=== PATIENT | male | born 1950 | race African-American/Black ===

== ENCOUNTER 2021-08-09 08:08 | Inpatient (IN) | payer MEDICARE, MEDICAID ==
[2021-08-09] MEDS ORDERED: Rocuronium Bromide 10 MG/ML (10ML VIAL) ONE (08:14)
[2021-08-09] MEDS ORDERED: Propofol 1,000 MG/100 ML VIAL IV ONE ×2 (08:17→12:19)
[2021-08-09 08:38] LABS: Actual Bicarbonate (HCO3a) 18.8 mEq/L (22-28); Analyzer IN Cardio ER; Base Excess (BEa) -11.6 mEq/L (-2.0 to +3.0); Calcium, Ionized (arterial) 1.19 mmol/L (1.12-1.30); Hemoglobin (Hb) 13.6 g/dL (14.0-18.0); O2 Tension (PaO2), arterial 212.3 mmHg (80.0-100.0); Potassium - ABG Lab 3.85 mmol/L (3.70-5.30)
[2021-08-09 08:42] LABS: pH, Arterial 7.09 (7.35-7.45)
[2021-08-09 08:43] LABS: ALV-art Gradient 422.325 mmHg (0-20); CO2 Tension 62.7 mmHg (35.0-45.0); Puncture Site RBA
[2021-08-09 08:52] LABS: ALT (SGPT) 52 U/L (8-55); AST (SGOT) 81 U/L (5-34); Alkaline Phosphatase 91 U/L (40-110); Anion Gap 16 mmol/L (10-20); Bilirubin, Total 0.6 mg/dL (0.2-1.2); Calc. Creatinine Clearance 0 mL/min (70-130); Calcium 8.6 mg/dL (7.8-10.44); Chloride 113 mmol/L (98-107); Potassium 4.6 mmol/L (3.5-5.1); Sodium 139 mmol/L (136-145)
[2021-08-09 08:58] LABS: Bacteria/HPF 4+ HPF (None Seen); Bilirubin Negative (Negative); Blood, Urine Trace (Negative); Clarity Clear (Clear); Glucose, Urine (Dipstick) Normal (Negative); Ketone, Urine Negative (Negative); Leukocyte 250 Leu/uL (Negative); Nitrite Negative (Negative); Protein, Urine (Dipstick) 100 mg/dL (Neg-Trace); RBC/HPF 0-3 HPF (0-3); Specific Gravity, Urine 1.015 (1.002-1.036); Urobilinogen Normal mg/dL (Less than 2)
[2021-08-09 09:03] LABS: Hemoglobin 15.3 g/dL (14.0-18.0); Lymphocytes 58 % (21-51); MDiff Complete? YES; Mean Corpuscular HGB CONC 32.7 g/dL (32.0-36.0); Mean Corpuscular Volume 91.8 fL (78.0-98.0); Mean Platelet Volume 12.6 fL (7.4-10.4); Monocytes 8 % (0-10); Neutrophil 33 % (42-75); Platelet Count 81 thou/uL (130-400); Platelet Morphology Comment Appears Decreased; Polychromasia SLIGHT = 2-3 cells (100X) (0-2/hpf); RBC Distribution Width 15.7 % (11.5-14.5); Reactive Lymphocytes 1 % (0-10); Red Blood Cell (RBC) Count 5.11 mill/uL (4.70-6.10); White Blood Cell (WBC) Count 11.7 thou/uL (4.8-10.8)
[2021-08-09] MEDS ORDERED: Cefepime 2 GM VIAL ONE (09:08)
[2021-08-09] MEDS ORDERED: Magnesium 2 GM/50 ML BAG (IN WATER) ONE (09:08)
[2021-08-09] MEDS ORDERED: methylPREDNISolone Sod Succ/PF 125 MG/2 ML VIAL ONE (09:08)
[2021-08-09 09:34] LABS: SARS-CoV-2 NAA Rapid Test Not Detected (NotDetected)
[2021-08-09] MEDS ORDERED: Vancomycin 1 GM in Premix Bag 1 BAG IVPB SCH ×2 (10:15→19:00)
[2021-08-09 10:54] LABS: Actual Bicarbonate (HCO3a) 19.3 mEq/L (22-28); Analyzer IN Cardio ER; Base Excess (BEa) -7.9 mEq/L (-2.0 to +3.0); CO2 Tension 45.6 mmHg (35.0-45.0); Calcium, Ionized (arterial) 1.14 mmol/L (1.12-1.30); Carboxyhemoglobin (COHb) 2.4 gm% (0.0-3.0); Hemoglobin (Hb) 13.1 g/dL (14.0-18.0); O2 Tension (PaO2), arterial 61.3 mmHg (> 70.0); Potassium - ABG Lab 4.78 mmol/L (3.70-5.30); Puncture Site RBA; pH, Arterial 7.24 (7.35-7.45)
[2021-08-09] MEDS ORDERED: Calcium Carbonate 500 MG ChewTAB PO PRN (11:39)
[2021-08-09] MEDS ORDERED: Acetaminophen 325 MG TAB PO PRN (11:39)
[2021-08-09] MEDS ORDERED: Acetaminophen 650 MG Suppository PR PRN (11:39)
[2021-08-09] MEDS ORDERED: Senokot S 8.6-50 MG TAB PO PRN (11:39)
[2021-08-09] MEDS ORDERED: Electrolyte Replacement Protocol 1 EACH IVPB SCH (11:41)
[2021-08-09] MEDS ORDERED: Ventilator Sedation Protocol 1 EACH FS ONE (11:44)
[2021-08-09 12:03] LABS: Lactic Acid 1.9 mmol/L (0.5-2.2)
[2021-08-09 12:06] LABS: Magnesium 2.6 mg/dL (1.6-2.6); Phosphorus 4.1 mg/dL (2.3-4.7)
[2021-08-09 12:12] LABS: Troponin I 0.047 ng/mL (< 0.028)
[2021-08-09] MEDS ORDERED: Aspirin Chewable 81 MG TAB PER TUBE SCH (12:15)
[2021-08-09] MEDS ORDERED: Piperacillin/Tazobactam 3.375 GM in Sodium Chloride 0.9% 100 ML IVPB SCH (12:45)
[2021-08-09] MEDS ORDERED: Propofol BOLUS 1,000 MG/100 ML VIAL IV PRN (12:45)
[2021-08-09] MEDS ORDERED: DISCONTINUE PREVIOUS NARCOTIC PAIN MEDICATIONS AND BENZODIAZEPINES FS SCH (12:45)
[2021-08-09] MEDS ORDERED: Fentanyl BOLUS 250 ML IVPB PRN (12:45)
[2021-08-09] MEDS ORDERED: Propofol 1,000 MG/100 ML VIAL IV PRN (12:45)
[2021-08-09] MEDS ORDERED: Fentanyl CADD 100 ML IV SCH (12:45)
[2021-08-09] MEDS ORDERED: Morphine 4 MG/ML VIAL SLOW IVP PRN (12:45)
[2021-08-09 14:11] LABS: BUN (Urea Nitrogen) 18 mg/dL (8.4-25.7); Carbon Dioxide 15 mmol/L (23-31); Glucose 155 mg/dL (83-110)
[2021-08-09] MEDS: Furosemide 20 MG/2 ML VIAL SLOW IVP SCH (14:23)
[2021-08-09 14:33] LABS: Troponin I 0.087 ng/mL (< 0.028)
[2021-08-09 14:36] LABS: Anion Gap 13 mmol/L (10-20); BUN (Urea Nitrogen) 18 mg/dL (8.4-25.7); Calc. Creatinine Clearance 35 mL/min (70-130); Calcium 8.4 mg/dL (7.8-10.44); Carbon Dioxide 20 mmol/L (23-31); Chloride 112 mmol/L (98-107); Glucose 132 mg/dL (83-110); Potassium 5.2 mmol/L (3.5-5.1); Sodium 140 mmol/L (136-145)
[2021-08-09 16:03] LABS: Actual Bicarbonate (HCO3v) 21 mEq/L (22-28); Calcium, Ionized (venous) 1.17 mmol/L (1.16-1.32); Chloride (VBG) 109 mmol/L (98-106); Hemoglobin (Hb) 12.9 g/dL (12.6-17.4); Potassium (VBG) 6.19 mmol/L (3.70-5.30); Sodium 136.4 mmol/L (133-146); pH (venous) 7.31 (7.32-7.43)
[2021-08-09] MEDS: Piperacillin/Tazobactam 3.375 GM in Sodium Chloride 0.9% 100 ML IVPB SCH (17:29)
[2021-08-09] MEDS ORDERED: Vancomycin HCl 1 MG in Premix Bag 1 BAG IVPB SCH (19:00)
[2021-08-09] MEDS: fentaNYL Citrate-0.9 % NaCl/PF 100 ML IV SCH (19:32)
[2021-08-09] MEDS: Famotidine 20 MG TAB PO SCH (19:46)
[2021-08-09] MEDS ORDERED: cefTRIAXone\\ROCEPHIN 2 GM in Sodium Chloride 0.9% 100 ML IVPB SCH (21:00)
[2021-08-09] MEDS: Famotidine/PF 20 mg/2ml Vial SLOW IVP SCH (21:15)
[2021-08-09] MEDS: Lorazepam 2 MG/ML VIAL SLOW IVP PRN (21:16)
[2021-08-09] MEDS: Heparin 5,000 UNITS/ML VIAL SC SCH (21:26)
[2021-08-10] MEDS: Piperacillin/Tazobactam 3.375 GM in Sodium Chloride 0.9% 100 ML IVPB SCH ×4 (02:19→23:59)
[2021-08-10 03:53] LABS: #Lymphocytes 1.2 thou/uL (1.20-3.40); #Monocytes 0.9 thou/uL (0.11-0.59); %Basophils 0.4 % (0.0-1.0); %Lymphocytes 13.5 % (21.0-51.0); %Monocytes 9.6 % (0.0-10.0); %Neutrophils 76.4 % (42.0-75.0); Hemoglobin 13.8 g/dL (14.0-18.0); Mean Corpuscular HGB CONC 31.6 g/dL (32.0-36.0); Mean Corpuscular Hemoglobin 29.6 pg (27.0-31.0); Mean Corpuscular Volume 93.9 fL (78.0-98.0); Mean Platelet Volume 11.9 fL (7.4-10.4); Platelet Count 97 thou/uL (130-400); RBC Distribution Width 15.8 % (11.5-14.5); Red Blood Cell (RBC) Count 4.66 mill/uL (4.70-6.10); White Blood Cell (WBC) Count 9.2 thou/uL (4.8-10.8)
[2021-08-10 03:55] LABS: INR-International Normal Ratio 1.1; PTT 36.9 sec (22.9-36.1); Prothrombin Time 14.3 sec (12.0-14.7)
[2021-08-10 04:12] LABS: CRP (Inflammatory) Less than 0.50 mg/dL (= or < 0.5); Phosphorus 3.5 mg/dL (2.3-4.7)
[2021-08-10 04:16] LABS: ALT (SGPT) 46 U/L (8-55); AST (SGOT) 38 U/L (5-34); Albumin 3.5 g/dL (3.4-4.8); Alkaline Phosphatase 82 U/L (40-110); Anion Gap 16 mmol/L (10-20); BUN (Urea Nitrogen) 20 mg/dL (8.4-25.7); Bilirubin, Total 0.7 mg/dL (0.2-1.2); Calc. Creatinine Clearance 33 mL/min (70-130); Calcium 8.4 mg/dL (7.8-10.44); Carbon Dioxide 16 mmol/L (23-31); Chloride 112 mmol/L (98-107); Globulin 2.7 g/dL (2.4-3.5); Glucose 114 mg/dL (83-110); Magnesium 2.4 mg/dL (1.6-2.6); Potassium 4.7 mmol/L (3.5-5.1); Protein, Total 6.2 g/dL (5.8-8.1); Sodium 139 mmol/L (136-145)
[2021-08-10] MEDS: Furosemide 20 MG/2 ML VIAL SLOW IVP SCH ×2 (05:10→14:06)
[2021-08-10 07:14] LABS: Actual Bicarbonate (HCO3a) 15.6 mEq/L (22-28); Base Excess (BEa) -7.8 mEq/L (-2.0 to +3.0); CO2 Tension 26.6 mmHg (35.0-45.0); Calcium, Ionized (arterial) 1.18 mmol/L (1.12-1.30); Carboxyhemoglobin (COHb) 0.2 gm% (0.0-3.0); Hemoglobin (Hb) 13.1 g/dL (14.0-18.0); O2 Tension (PaO2), arterial 118.8 mmHg (> 70.0); Potassium - ABG Lab 4.35 mmol/L (3.70-5.30); pH, Arterial 7.39 (7.35-7.45)
[2021-08-10 07:27] LABS: Puncture Site RBA
[2021-08-10] MEDS: Aspirin Chewable 81 MG TAB PO SCH (09:16)
[2021-08-10] MEDS: methylPREDNISolone Sod Succ 40 MG VIAL IVP SCH (09:17)
[2021-08-10] MEDS: fentaNYL Citrate-0.9 % NaCl/PF 100 ML IV SCH (10:04)
[2021-08-10] MEDS ORDERED: Dexmedetomidine In 0.9 % NaCl 100 ML IVPB SCH (11:15)
[2021-08-10] MEDS: Heparin 5,000 UNITS/ML VIAL SC SCH ×2 (12:05→20:18)
[2021-08-10] MEDS: Lorazepam 2 MG/ML VIAL SLOW IVP PRN (12:06)
[2021-08-10] MEDS ORDERED: Propofol 1,000 MG/100 ML VIAL IV PRN (15:00)
[2021-08-10] MEDS: Famotidine 20 MG TAB PO SCH (20:05)
[2021-08-10] MEDS: Famotidine/PF 20 mg/2ml Vial SLOW IVP SCH (20:19)
[2021-08-11 04:08] LABS: ALT (SGPT) 30 U/L (8-55); AST (SGOT) 20 U/L (5-34); Albumin 3.4 g/dL (3.4-4.8); Alkaline Phosphatase 65 U/L (40-110); Anion Gap 13 mmol/L (10-20); BUN (Urea Nitrogen) 32 mg/dL (8.4-25.7); Bilirubin, Total 0.6 mg/dL (0.2-1.2); Calc. Creatinine Clearance 26 mL/min (70-130); Calcium 8.5 mg/dL (7.8-10.44); Carbon Dioxide 19 mmol/L (23-31); Chloride 113 mmol/L (98-107); Globulin 2.7 g/dL (2.4-3.5); Glucose 109 mg/dL (83-110); Magnesium 2.4 mg/dL (1.6-2.6); Potassium 4.2 mmol/L (3.5-5.1); Protein, Total 6.1 g/dL (5.8-8.1); Sodium 141 mmol/L (136-145)
[2021-08-11 05:08] LABS: #Monocytes 1.3 thou/uL (0.11-0.59); #Neutrophils 9.3 thou/uL (1.40-6.50); %Basophils 0.3 % (0.0-1.0); %Eosinophils 0.1 % (0.0-10.0); %Lymphocytes 15.6 % (21.0-51.0); %Monocytes 10.4 % (0.0-10.0); %Neutrophils 73.7 % (42.0-75.0); Hemoglobin 13.2 g/dL (14.0-18.0); Large Platelets SLIGHT; MDiff Complete? YES; Mean Corpuscular HGB CONC 33.3 g/dL (32.0-36.0); Mean Corpuscular Hemoglobin 30.3 pg (27.0-31.0); Mean Platelet Volume 8.5 fL (7.4-10.4); Platelet Count 87 thou/uL (130-400); Platelet Morphology Comment Appears Decreased; RBC Distribution Width 15.7 % (11.5-14.5); Red Blood Cell (RBC) Count 4.36 mill/uL (4.70-6.10); White Blood Cell (WBC) Count 12.6 thou/uL (4.8-10.8)
[2021-08-11 07:42] LABS: Actual Bicarbonate (HCO3a) 18.2 mEq/L (22-28); Base Excess (BEa) -5.3 mEq/L (-2.0 to +3.0); CO2 Tension 29.6 mmHg (35.0-45.0); Carboxyhemoglobin (COHb) 0.6 gm% (0.0-3.0); O2 Tension (PaO2), arterial 118.8 mmHg (> 70.0); Potassium - ABG Lab 3.89 mmol/L (3.70-5.30); pH, Arterial 7.41 (7.35-7.45)
[2021-08-11 07:44] LABS: Puncture Site RRA
[2021-08-11] MEDS: Piperacillin/Tazobactam 3.375 GM in Sodium Chloride 0.9% 100 ML IVPB SCH ×2 (08:28→17:58)
[2021-08-11] MEDS: Aspirin Chewable 81 MG TAB PO SCH (08:29)
[2021-08-11] MEDS: Heparin 5,000 UNITS/ML VIAL SC SCH ×2 (08:29→20:10)
[2021-08-11] MEDS: methylPREDNISolone Sod Succ 40 MG VIAL IVP SCH (08:29)
[2021-08-11] MEDS ORDERED: Sodium Chloride 0.9% 1,000 ML IV SCH (10:00)
[2021-08-11] MEDS: Sodium Chloride 3% (15 ML) NEB NEB SCH ×3 (10:40→18:03)
[2021-08-11 18:47] LABS: Vancomycin, Random 9.7 ug/mL (See Comment)
[2021-08-11] MEDS ORDERED: Vancomycin HCl 750 MG in Sodium Chloride 0.9% 250 ML 250 ML IVPB SCH (19:00)
[2021-08-11] MEDS: Famotidine/PF 20 mg/2ml Vial SLOW IVP SCH (20:10)
[2021-08-12] MEDS: Piperacillin/Tazobactam 3.375 GM in Sodium Chloride 0.9% 100 ML IVPB SCH
[2021-08-12 03:44] LABS: #Basophils 0.1 thou/uL (0.0-0.2); #Lymphocytes 1.5 thou/uL (1.20-3.40); #Monocytes 1.7 thou/uL (0.11-0.59); #Neutrophils 11.9 thou/uL (1.40-6.50); %Basophils 0.4 % (0.0-1.0); %Eosinophils 0.1 % (0.0-10.0); %Lymphocytes 10.1 % (21.0-51.0); %Monocytes 11.3 % (0.0-10.0); %Neutrophils 78.1 % (42.0-75.0); Hemoglobin 12.9 g/dL (14.0-18.0); Mean Corpuscular HGB CONC 33.1 g/dL (32.0-36.0); Mean Corpuscular Hemoglobin 30.5 pg (27.0-31.0); Mean Corpuscular Volume 92.1 fL (78.0-98.0); Mean Platelet Volume 11.8 fL (7.4-10.4); Platelet Count 80 thou/uL (130-400); RBC Distribution Width 15.8 % (11.5-14.5); Red Blood Cell (RBC) Count 4.23 mill/uL (4.70-6.10); White Blood Cell (WBC) Count 15.2 thou/uL (4.8-10.8)
[2021-08-12 04:11] LABS: ALT (SGPT) 23 U/L (8-55); AST (SGOT) 18 U/L (5-34); Albumin 3.7 g/dL (3.4-4.8); Alkaline Phosphatase 59 U/L (40-110); Anion Gap 14 mmol/L (10-20); BUN (Urea Nitrogen) 24 mg/dL (8.4-25.7); Bilirubin, Total 0.9 mg/dL (0.2-1.2); Calc. Creatinine Clearance 31 mL/min (70-130); Calcium 8.7 mg/dL (7.8-10.44); Carbon Dioxide 18 mmol/L (23-31); Chloride 114 mmol/L (98-107); Glucose 145 mg/dL (83-110); Magnesium 2.2 mg/dL (1.6-2.6); Potassium 3.5 mmol/L (3.5-5.1); Protein, Total 6.7 g/dL (5.8-8.1); Sodium 142 mmol/L (136-145)
[2021-08-12] MEDS ORDERED: Potassium Chloride 40 MEQ in Sodium Chloride 0.9% 250 ML 250 ML IVPB SCH (06:45)
[2021-08-12] MEDS: Sodium Chloride 3% (15 ML) NEB NEB SCH ×3 (07:26→14:32)
[2021-08-12 08:14] VITALS: BMI 18.4
[2021-08-12] MEDS ORDERED: predniSONE 20 MG TAB PO SCH (08:45)
[2021-08-12] MEDS ORDERED: Amlodipine 5 MG TAB PO SCH (09:00)
[2021-08-12] MEDS ORDERED: Amoxicillin/Potassium Clav 875 MG TAB PO SCH (09:00)
[2021-08-12] MEDS: Aspirin Chewable 81 MG TAB PO SCH (09:20)
[2021-08-12] MEDS: Heparin 5,000 UNITS/ML VIAL SC SCH (09:20)
[2021-08-12 10:44] VITALS: TEMP 98.1
[2021-08-12] MEDS ORDERED: Carvedilol 6.25 MG TAB PO SCH ×2 (11:45→17:00)
[2021-08-12 12:45] VITALS: BP 170/70
[2021-08-13] MEDS ORDERED: predniSONE 20 MG TAB PO SCH (08:00)
== END 2021-08-12 16:04 | disposition home or self-care (01) | DRG 208 ==
LOC: ERS 08:08 → EDBD 08:08 → CCU 10:10 → T4-A 08-12 10:13
PROVIDERS: ADMIT Internal Medicine; ATTEND Internal Medicine
PROC: 5A1945Z Respiratory Ventilation, 24-96 Consecutive Hours (ICD-10-PCS; principal; 2021-08-09)
PROC: 0BH17EZ Insertion of Endotracheal Airway into Trachea, Via Natural or Artificial Opening (ICD-10-PCS; 2021-08-09)
PROC: 0D9670Z Drainage of Stomach with Drainage Device, Via Natural or Artificial Opening (ICD-10-PCS; 2021-08-09)
DX: J18.9 Pneumonia, unspecified organism (principal); J96.01 Acute respiratory failure with hypoxia; I50.23 Acute on chronic systolic (congestive) heart failure; J96.02 Acute respiratory failure with hypercapnia; N39.0 Urinary tract infection, site not specified; E87.2 Acidosis; I13.0 Hypertensive heart and chronic kidney disease with heart failure and stage 1 through stage 4 chronic kidney disease, or unspecified chronic kidney disease; J44.1 Chronic obstructive pulmonary disease with (acute) exacerbation; J44.0 Chronic obstructive pulmonary disease with (acute) lower respiratory infection; I42.9 Cardiomyopathy, unspecified; N17.9 Acute kidney failure, unspecified; Z20.822 Contact with and (suspected) exposure to COVID-19; I08.3 Combined rheumatic disorders of mitral, aortic and tricuspid valves; I49.3 Ventricular premature depolarization; I45.10 Unspecified right bundle-branch block; F41.9 Anxiety disorder, unspecified; N40.0 Benign prostatic hyperplasia without lower urinary tract symptoms; M54.9 Dorsalgia, unspecified; M54.2 Cervicalgia; G89.29 Other chronic pain; N18.30 Chronic kidney disease, stage 3 unspecified; R91.1 Solitary pulmonary nodule; D69.6 Thrombocytopenia, unspecified; B96.5 Pseudomonas (aeruginosa) (mallei) (pseudomallei) as the cause of diseases classified elsewhere; F17.290 Nicotine dependence, other tobacco product, uncomplicated; Z79.01 Long term (current) use of anticoagulants; Z79.899 Other long term (current) drug therapy; Z78.1 Physical restraint status; Z98.890 Other specified postprocedural states; Z79.82 Long term (current) use of aspirin; Z87.01 Personal history of pneumonia (recurrent); Z87.440 Personal history of urinary (tract) infections
CPT/HCPCS: 31500; 36415; 36416; 36600; 51702; 71045; 76770; 80053; 80202; 81003; 81015; 82805; 83605; 83735; 83880; 84100; 84484; 85025; 85610; 85730; 86140; 87040; 87070; 87077; 87086; 87186; 87205; 93005; 93306; 94002; 94003; 94640; 94760; 96365; 96366; 96368; 96375; 97139; 99292; J0692; J1644; J1940; J2060; J2543; J2704; J2920; J2930; J3370; J3475; J3480; J3490; J7050; J7512; J7620; S0028; U0002

== ENCOUNTER 2022-01-06 20:17 | Inpatient (IN) | payer OTHER ==
[2022-01-06] MEDS ORDERED: Ondansetron ODT 4 MG TAB ONE (21:03)
[2022-01-06 22:23] LABS: Bacteria/HPF 3+ HPF (None Seen); Bilirubin Negative (Negative); Blood, Urine Negative (Negative); Clarity Turbid (Clear); Glucose, Urine (Dipstick) Normal (Negative); Ketone, Urine Negative (Negative); Leukocyte 500 Leu/uL (Negative); Nitrite Negative (Negative); Protein, Urine (Dipstick) 10 mg/dL (Neg-Trace); RBC/HPF 0-3 HPF (0-3); Specific Gravity, Urine 1.013 (1.002-1.036); Squamous Epithelial 0-3 HPF (0-3); Urobilinogen Normal mg/dL (Less than 2); pH, Urine 7.5 (5.0-9.0)
[2022-01-06 22:24] LABS: Triple Phosphate Crystal 1+ HPF (None Seen)
[2022-01-06 23:02] LABS: #Eosinphils 0.1 thou/uL (0.0-0.7); #Monocytes 0.8 thou/uL (0.11-0.59); #Neutrophils 6.7 thou/uL (1.40-6.50); %Basophils 0.4 % (0.0-1.0); %Eosinophils 0.9 % (0.0-10.0); %Lymphocytes 20.7 % (21.0-51.0); %Monocytes 8.4 % (0.0-10.0); %Neutrophils 69.7 % (42.0-75.0); Hemoglobin 11.3 g/dL (14.0-18.0); Mean Corpuscular HGB CONC 31.9 g/dL (32.0-36.0); Mean Corpuscular Hemoglobin 27.9 pg (27.0-31.0); Mean Corpuscular Volume 87.6 fL (78.0-98.0); Mean Platelet Volume 9.6 fL (7.4-10.4); Platelet Count 224 thou/uL (130-400); RBC Distribution Width 17.9 % (11.5-14.5); Red Blood Cell (RBC) Count 4.06 mill/uL (4.70-6.10); White Blood Cell (WBC) Count 9.7 thou/uL (4.8-10.8)
[2022-01-06 23:19] LABS: ALT (SGPT) 48 U/L (8-55); AST (SGOT) 55 U/L (5-34); Albumin 3.6 g/dL (3.4-4.8); Alkaline Phosphatase 92 U/L (40-110); Anion Gap 18 mmol/L (10-20); BUN (Urea Nitrogen) 48 mg/dL (8.4-25.7); Calc. Creatinine Clearance 0 mL/min (70-130); Calcium 8.9 mg/dL (7.8-10.44); Carbon Dioxide 17 mmol/L (23-31); Chloride 108 mmol/L (98-107); Estimated GFR 30; Globulin 2.5 g/dL (2.4-3.5); Glucose 121 mg/dL (83-110); Potassium 5.1 mmol/L (3.5-5.1); Protein, Total 6.1 g/dL (5.8-8.1); Sodium 138 mmol/L (136-145)
[2022-01-06 23:41] LABS: CKMB 4.3 ng/mL (0-6.6)
[2022-01-06] MEDS ORDERED: cefTRIAXone\\ROCEPHIN 1 GM VIAL ONE (23:49)
[2022-01-07] MEDS ORDERED: Sodium Chloride 0.9% 1,000 ML IV SCH (00:45)
[2022-01-07] MEDS ORDERED: Ondansetron ODT 4 MG TAB SL PRN (00:45)
[2022-01-07] MEDS ORDERED: Acetaminophen 325 MG TAB PO PRN (00:45)
[2022-01-07] MEDS ORDERED: Ondansetron PF 4 MG/2 ML Vial IVP PRN (00:45)
[2022-01-07 01:34] VITALS: BMI 17.6
[2022-01-07 04:39] LABS: #Basophils 0.1 thou/uL (0.0-0.2); #Eosinphils 0.1 thou/uL (0.0-0.7); #Lymphocytes 2.6 thou/uL (1.20-3.40); #Monocytes 1.2 thou/uL (0.11-0.59); %Basophils 0.7 % (0.0-1.0); %Eosinophils 0.8 % (0.0-10.0); %Lymphocytes 26.4 % (21.0-51.0); %Monocytes 11.7 % (0.0-10.0); %Neutrophils 60.3 % (42.0-75.0); Hemoglobin 11.2 g/dL (14.0-18.0); Mean Corpuscular HGB CONC 31.1 g/dL (32.0-36.0); Mean Corpuscular Hemoglobin 27.9 pg (27.0-31.0); Mean Corpuscular Volume 89.5 fL (78.0-98.0); Mean Platelet Volume 11.6 fL (7.4-10.4); Platelet Count 166 thou/uL (130-400); RBC Distribution Width 18.2 % (11.5-14.5); Red Blood Cell (RBC) Count 4.03 mill/uL (4.70-6.10); White Blood Cell (WBC) Count 9.9 thou/uL (4.8-10.8)
[2022-01-07 05:03] LABS: Chloride 111 mmol/L (98-107); Potassium 5.3 mmol/L (3.5-5.1); Sodium 135 mmol/L (136-145)
[2022-01-07 05:04] LABS: Calcium 8.4 mg/dL (7.8-10.44); Glucose 110 mg/dL (83-110)
[2022-01-07 05:08] LABS: BUN (Urea Nitrogen) 51 mg/dL (8.4-25.7); Calc. Creatinine Clearance 21 mL/min (70-130); Estimated GFR 31
[2022-01-07 05:10] LABS: Anion Gap 20 mmol/L (10-20); Carbon Dioxide 9 mmol/L (23-31)
[2022-01-07 05:32] LABS: CKMB 3.5 ng/mL (0-6.6)
[2022-01-07] MEDS ORDERED: Polyethylene Glycol 3350 17 GM Packet PO PRN (05:53)
[2022-01-07] MEDS ORDERED: Sodium Bicarb 50 MEQ/50 ML Abboject 8.4% SYRINGE IVP SCH (06:00)
[2022-01-07] MEDS ORDERED: Sodium Bicarbonate 150 MEQ in Dextrose 5% in Water 1,000 ML IV SCH (06:15)
[2022-01-07] MEDS: Sodium Bicarbonate 150 MEQ in Dextrose 5% in Water 1,000 ML IV SCH ×2 (06:41→20:49)
[2022-01-07] MEDS: Heparin 5,000 UNITS/ML VIAL SC SCH ×2 (08:52→20:48)
[2022-01-07] MEDS: Docusate 100 MG CAP PO SCH ×2 (08:52→20:47)
[2022-01-07] MEDS: Amlodipine 5 MG TAB PO SCH (08:52)
[2022-01-07] MEDS: Carvedilol 6.25 MG TAB PO SCH ×2 (08:52→16:32)
[2022-01-07] MEDS: Pregabalin 50 MG CAP PO SCH ×2 (08:53→20:47)
[2022-01-07 09:20] LABS: Anion Gap 17 mmol/L (10-20); BUN (Urea Nitrogen) 50 mg/dL (8.4-25.7); Calc. Creatinine Clearance 23 mL/min (70-130); Calcium 8.6 mg/dL (7.8-10.44); Carbon Dioxide 15 mmol/L (23-31); Chloride 109 mmol/L (98-107); Estimated GFR 33; Glucose 116 mg/dL (83-110); Potassium 4.4 mmol/L (3.5-5.1); Sodium 137 mmol/L (136-145)
[2022-01-07 11:09] LABS: Lactic Acid 1.9 mmol/L (0.5-2.2)
[2022-01-07] MEDS: Azithromycin 500 MG in Sodium Chloride 0.9% 250 ML 250 ML IVPB SCH (11:59)
[2022-01-07] MEDS: Simvastatin 10 MG TAB PO SCH (20:47)
[2022-01-07] MEDS: cefTRIAXone\\ROCEPHIN 1 GM in Sodium Chloride 0.9% 100 ML IVPB SCH (20:49)
[2022-01-08 04:55] LABS: #Basophils 0.1 thou/uL (0.0-0.2); #Eosinphils 0.1 thou/uL (0.0-0.7); #Lymphocytes 2.3 thou/uL (1.20-3.40); #Monocytes 1.2 thou/uL (0.11-0.59); #Neutrophils 6.1 thou/uL (1.40-6.50); %Eosinophils 0.8 % (0.0-10.0); %Lymphocytes 23.4 % (21.0-51.0); %Monocytes 12.5 % (0.0-10.0); %Neutrophils 62.3 % (42.0-75.0); Hemoglobin 10.2 g/dL (14.0-18.0); Mean Corpuscular HGB CONC 31.5 g/dL (32.0-36.0); Mean Corpuscular Volume 88.7 fL (78.0-98.0); Mean Platelet Volume 9.7 fL (7.4-10.4); Platelet Count 218 thou/uL (130-400); RBC Distribution Width 17.7 % (11.5-14.5); Red Blood Cell (RBC) Count 3.65 mill/uL (4.70-6.10); White Blood Cell (WBC) Count 9.8 thou/uL (4.8-10.8)
[2022-01-08 05:10] LABS: Anion Gap 16 mmol/L (10-20); BUN (Urea Nitrogen) 45 mg/dL (8.4-25.7); Calc. Creatinine Clearance 24 mL/min (70-130); Calcium 8.3 mg/dL (7.8-10.44); Carbon Dioxide 22 mmol/L (23-31); Chloride 103 mmol/L (98-107); Estimated GFR 35; Glucose 93 mg/dL (83-110); Sodium 137 mmol/L (136-145)
[2022-01-08] MEDS: Heparin 5,000 UNITS/ML VIAL SC SCH ×2 (07:54→20:24)
[2022-01-08] MEDS: Carvedilol 6.25 MG TAB PO SCH ×2 (07:55→16:39)
[2022-01-08] MEDS: Amlodipine 5 MG TAB PO SCH (07:55)
[2022-01-08] MEDS: Docusate 100 MG CAP PO SCH ×2 (07:55→20:24)
[2022-01-08] MEDS: Sodium Bicarbonate 150 MEQ in Dextrose 5% in Water 1,000 ML IV SCH ×2 (07:58→16:41)
[2022-01-08] MEDS: Azithromycin 500 MG in Sodium Chloride 0.9% 250 ML 250 ML IVPB SCH (11:37)
[2022-01-08] MEDS: Pregabalin 50 MG CAP PO SCH ×2 (11:37→20:23)
[2022-01-08] MEDS: Azithromycin 250 MG TAB PO SCH (16:39)
[2022-01-08] MEDS: Simvastatin 10 MG TAB PO SCH (20:23)
[2022-01-08] MEDS: cefTRIAXone\\ROCEPHIN 1 GM in Sodium Chloride 0.9% 100 ML IVPB SCH (20:24)
[2022-01-09 05:02] LABS: #Eosinphils 0.1 thou/uL (0.0-0.7); #Neutrophils 6.9 thou/uL (1.40-6.50); %Basophils 0.2 % (0.0-1.0); %Eosinophils 0.8 % (0.0-10.0); %Monocytes 10.3 % (0.0-10.0); %Neutrophils 68.8 % (42.0-75.0); Hemoglobin 10.1 g/dL (14.0-18.0); Mean Corpuscular HGB CONC 31.7 g/dL (32.0-36.0); Mean Corpuscular Hemoglobin 27.6 pg (27.0-31.0); Mean Platelet Volume 9.8 fL (7.4-10.4); Platelet Count 214 thou/uL (130-400); RBC Distribution Width 17.9 % (11.5-14.5); Red Blood Cell (RBC) Count 3.64 mill/uL (4.70-6.10); White Blood Cell (WBC) Count 10.1 thou/uL (4.8-10.8)
[2022-01-09 05:25] LABS: Anion Gap 15 mmol/L (10-20); BUN (Urea Nitrogen) 42 mg/dL (8.4-25.7); Calc. Creatinine Clearance 25 mL/min (70-130); Calcium 8.4 mg/dL (7.8-10.44); Carbon Dioxide 25 mmol/L (23-31); Chloride 101 mmol/L (98-107); Estimated GFR 38; Glucose 114 mg/dL (83-110); Sodium 137 mmol/L (136-145)
[2022-01-09] MEDS: Sodium Bicarbonate 150 MEQ in Dextrose 5% in Water 1,000 ML IV SCH (06:34)
[2022-01-09] MEDS: Carvedilol 6.25 MG TAB PO SCH ×2 (09:06→18:05)
[2022-01-09] MEDS: Pregabalin 50 MG CAP PO SCH ×2 (09:06→20:17)
[2022-01-09] MEDS: Amlodipine 5 MG TAB PO SCH (09:07)
[2022-01-09] MEDS: Docusate 100 MG CAP PO SCH ×2 (09:08→20:19)
[2022-01-09] MEDS: Azithromycin 250 MG TAB PO SCH (09:08)
[2022-01-09] MEDS: Heparin 5,000 UNITS/ML VIAL SC SCH ×2 (09:10→20:20)
[2022-01-09] MEDS ORDERED: Lisinopril 2.5 MG TAB PO SCH (14:00)
[2022-01-09] MEDS: Furosemide 40 MG/4 ML VIAL SLOW IVP SCH (14:24)
[2022-01-09] MEDS: Simvastatin 10 MG TAB PO SCH (20:17)
[2022-01-09] MEDS: cefTRIAXone\\ROCEPHIN 1 GM in Sodium Chloride 0.9% 100 ML IVPB SCH (22:52)
[2022-01-10 04:52] LABS: #Basophils 0.1 thou/uL (0.0-0.2); #Eosinphils 0.1 thou/uL (0.0-0.7); #Lymphocytes 1.6 thou/uL (1.20-3.40); #Neutrophils 6.5 thou/uL (1.40-6.50); %Basophils 0.6 % (0.0-1.0); %Eosinophils 1.6 % (0.0-10.0); %Lymphocytes 16.9 % (21.0-51.0); %Monocytes 11.1 % (0.0-10.0); %Neutrophils 69.9 % (42.0-75.0); Hemoglobin 10.1 g/dL (14.0-18.0); Mean Corpuscular HGB CONC 31.6 g/dL (32.0-36.0); Mean Corpuscular Hemoglobin 27.3 pg (27.0-31.0); Mean Corpuscular Volume 86.2 fL (78.0-98.0); Mean Platelet Volume 9.9 fL (7.4-10.4); Platelet Count 203 thou/uL (130-400); RBC Distribution Width 17.9 % (11.5-14.5); Red Blood Cell (RBC) Count 3.69 mill/uL (4.70-6.10); White Blood Cell (WBC) Count 9.3 thou/uL (4.8-10.8)
[2022-01-10 05:04] LABS: Anion Gap 16 mmol/L (10-20); BUN (Urea Nitrogen) 44 mg/dL (8.4-25.7); Calc. Creatinine Clearance 24 mL/min (70-130); Calcium 8.3 mg/dL (7.8-10.44); Carbon Dioxide 27 mmol/L (23-31); Chloride 97 mmol/L (98-107); Estimated GFR 35; Glucose 148 mg/dL (83-110); Potassium 3.9 mmol/L (3.5-5.1); Sodium 136 mmol/L (136-145)
[2022-01-10] MEDS: Furosemide 40 MG/4 ML VIAL SLOW IVP SCH ×2 (05:29→14:35)
[2022-01-10] MEDS: Sodium Bicarbonate 150 MEQ in Dextrose 5% in Water 1,000 ML IV SCH (05:29)
[2022-01-10] MEDS: Pregabalin 50 MG CAP PO SCH ×2 (07:54→19:52)
[2022-01-10] MEDS: Azithromycin 250 MG TAB PO SCH (07:55)
[2022-01-10] MEDS: Lisinopril 2.5 MG TAB PO SCH (07:55)
[2022-01-10] MEDS: Docusate 100 MG CAP PO SCH ×2 (07:55→19:50)
[2022-01-10] MEDS: Carvedilol 6.25 MG TAB PO SCH ×2 (07:55→17:31)
[2022-01-10] MEDS: Heparin 5,000 UNITS/ML VIAL SC SCH ×2 (07:55→19:52)
[2022-01-10] MEDS: Aspirin 81 mg Enteric Coated Tablet PO SCH (07:55)
[2022-01-10] MEDS ORDERED: Mag-Al 1200 mg/1200 mg/30 ML UDCUP PO SCH (17:00)
[2022-01-10] MEDS: Simvastatin 10 MG TAB PO SCH (19:51)
[2022-01-10] MEDS: cefTRIAXone\\ROCEPHIN 1 GM in Sodium Chloride 0.9% 100 ML IVPB SCH (23:42)
[2022-01-11] MEDS: Sodium Bicarbonate 150 MEQ in Dextrose 5% in Water 1,000 ML IV SCH (04:10)
[2022-01-11] MEDS: Furosemide 40 MG/4 ML VIAL SLOW IVP SCH ×2 (06:05→13:53)
[2022-01-11] MEDS: Lisinopril 2.5 MG TAB PO SCH (07:55)
[2022-01-11] MEDS: Carvedilol 6.25 MG TAB PO SCH ×2 (07:55→16:32)
[2022-01-11] MEDS: Docusate 100 MG CAP PO SCH ×2 (07:55→20:25)
[2022-01-11] MEDS: Heparin 5,000 UNITS/ML VIAL SC SCH ×2 (07:55→20:25)
[2022-01-11] MEDS: Pregabalin 50 MG CAP PO SCH ×2 (07:56→20:25)
[2022-01-11] MEDS: Azithromycin 250 MG TAB PO SCH (07:56)
[2022-01-11] MEDS: Aspirin 81 mg Enteric Coated Tablet PO SCH (07:56)
[2022-01-11 12:30] LABS: Anion Gap 16 mmol/L (10-20); BUN (Urea Nitrogen) 38 mg/dL (8.4-25.7); Calc. Creatinine Clearance 25 mL/min (70-130); Calcium 8.5 mg/dL (7.8-10.44); Carbon Dioxide 31 mmol/L (23-31); Chloride 96 mmol/L (98-107); Estimated GFR 38; Glucose 97 mg/dL (83-110); Potassium 4.1 mmol/L (3.5-5.1); Sodium 139 mmol/L (136-145)
[2022-01-11] MEDS: Simvastatin 10 MG TAB PO SCH (20:25)
[2022-01-11] MEDS: cefTRIAXone\\ROCEPHIN 1 GM in Sodium Chloride 0.9% 100 ML IVPB SCH (23:03)
[2022-01-12] MEDS: Sodium Bicarbonate 150 MEQ in Dextrose 5% in Water 1,000 ML IV SCH (02:24)
[2022-01-12 05:11] LABS: Anion Gap 16 mmol/L (10-20); BUN (Urea Nitrogen) 30 mg/dL (8.4-25.7); Calc. Creatinine Clearance 27 mL/min (70-130); Calcium 8.2 mg/dL (7.8-10.44); Carbon Dioxide 31 mmol/L (23-31); Chloride 97 mmol/L (98-107); Estimated GFR 41; Glucose 116 mg/dL (83-110); Potassium 3.7 mmol/L (3.5-5.1); Sodium 140 mmol/L (136-145)
[2022-01-12] MEDS: Furosemide 40 MG/4 ML VIAL SLOW IVP SCH ×2 (05:55→15:02)
[2022-01-12] MEDS: Aspirin 81 mg Enteric Coated Tablet PO SCH (07:57)
[2022-01-12] MEDS: Heparin 5,000 UNITS/ML VIAL SC SCH ×2 (07:57→20:25)
[2022-01-12] MEDS: Lisinopril 2.5 MG TAB PO SCH (07:58)
[2022-01-12] MEDS: Docusate 100 MG CAP PO SCH ×2 (07:58→20:25)
[2022-01-12] MEDS: Carvedilol 6.25 MG TAB PO SCH ×2 (07:58→16:38)
[2022-01-12] MEDS: Pregabalin 50 MG CAP PO SCH ×2 (07:58→20:25)
[2022-01-12] MEDS: Simvastatin 10 MG TAB PO SCH (20:25)
[2022-01-13] MEDS: Sodium Bicarbonate 150 MEQ in Dextrose 5% in Water 1,000 ML IV SCH (02:48)
[2022-01-13 04:56] LABS: Anion Gap 14 mmol/L (10-20); BUN (Urea Nitrogen) 35 mg/dL (8.4-25.7); Calc. Creatinine Clearance 26 mL/min (70-130); Calcium 8.5 mg/dL (7.8-10.44); Carbon Dioxide 33 mmol/L (23-31); Chloride 95 mmol/L (98-107); Estimated GFR 39; Glucose 103 mg/dL (83-110); Sodium 138 mmol/L (136-145)
[2022-01-13] MEDS ORDERED: Acetaminophen 325 MG TAB PO PRN (05:08)
[2022-01-13] MEDS: Furosemide 40 MG/4 ML VIAL SLOW IVP SCH (05:11)
[2022-01-13] MEDS: Aspirin 81 mg Enteric Coated Tablet PO SCH (09:15)
[2022-01-13] MEDS: Carvedilol 6.25 MG TAB PO SCH (09:15)
[2022-01-13] MEDS: Lisinopril 2.5 MG TAB PO SCH (09:15)
[2022-01-13] MEDS: Docusate 100 MG CAP PO SCH (09:15)
[2022-01-13] MEDS: Pregabalin 50 MG CAP PO SCH (09:16)
[2022-01-13] MEDS: Heparin 5,000 UNITS/ML VIAL SC SCH (09:16)
[2022-01-13 12:17] VITALS: BP 143/74; TEMP 97.7
== END 2022-01-13 13:10 | disposition home health service (06) | DRG 682 ==
LOC: ERS 20:17 → 2SW 23:52 → OBSVTOIN 01-07 06:17
PROVIDERS: ADMIT Internal Medicine; ATTEND Internal Medicine
DX: N17.9 Acute kidney failure, unspecified (principal); Z20.822 Contact with and (suspected) exposure to COVID-19; I50.23 Acute on chronic systolic (congestive) heart failure; J18.9 Pneumonia, unspecified organism; E44.1 Mild protein-calorie malnutrition; Z68.1 Body mass index [BMI] 19.9 or less, adult; I13.0 Hypertensive heart and chronic kidney disease with heart failure and stage 1 through stage 4 chronic kidney disease, or unspecified chronic kidney disease; E87.2 Acidosis; N39.0 Urinary tract infection, site not specified; N13.8 Other obstructive and reflux uropathy; I42.9 Cardiomyopathy, unspecified; N18.4 Chronic kidney disease, stage 4 (severe); J44.9 Chronic obstructive pulmonary disease, unspecified; G89.29 Other chronic pain; M54.9 Dorsalgia, unspecified; M54.2 Cervicalgia; R33.9 Retention of urine, unspecified; G62.9 Polyneuropathy, unspecified; F17.210 Nicotine dependence, cigarettes, uncomplicated; E87.5 Hyperkalemia; R77.8 Other specified abnormalities of plasma proteins; D63.1 Anemia in chronic kidney disease; R13.10 Dysphagia, unspecified; R13.12 Dysphagia, oropharyngeal phase; I08.0 Rheumatic disorders of both mitral and aortic valves; I08.3 Combined rheumatic disorders of mitral, aortic and tricuspid valves; Z98.890 Other specified postprocedural states; Z79.899 Other long term (current) drug therapy
CPT/HCPCS: 36415; 51701; 70551; 71045; 74018; 74176; 74230; 80048; 80053; 81003; 81015; 82553; 83605; 83880; 84145; 84484; 85025; 87077; 87086; 87186; 93005; 93306; 94640; 96365; G0378; J0456; J0696; J1644; J1940; J3490; J7050; J7070; J7620; Q0162; U0003; U0005

== ENCOUNTER 2022-01-16 09:15 | Inpatient (IN) | payer OTHER ==
[2022-01-16 10:18] LABS: #Basophils 0.1 thou/uL (0.0-0.2); #Eosinphils 0.1 thou/uL (0.0-0.7); #Lymphocytes 2.7 thou/uL (1.20-3.40); #Monocytes 1.2 thou/uL (0.11-0.59); #Neutrophils 8.3 thou/uL (1.40-6.50); %Basophils 0.4 % (0.0-1.0); %Eosinophils 0.5 % (0.0-10.0); %Lymphocytes 22.3 % (21.0-51.0); %Monocytes 9.6 % (0.0-10.0); %Neutrophils 67.2 % (42.0-75.0); Hemoglobin 11.3 g/dL (14.0-18.0); Mean Corpuscular HGB CONC 31.2 g/dL (32.0-36.0); Mean Corpuscular Hemoglobin 26.3 pg (27.0-31.0); Mean Corpuscular Volume 84.2 fL (78.0-98.0); Mean Platelet Volume 12.5 fL (7.4-10.4); Platelet Count 167 thou/uL (130-400); RBC Distribution Width 19.1 % (11.5-14.5); White Blood Cell (WBC) Count 12.3 thou/uL (4.8-10.8)
[2022-01-16] MEDS ORDERED: Furosemide 40 MG/4 ML VIAL ONE (11:16)
[2022-01-16] MEDS ORDERED: Aspirin Chewable 81 MG TAB ONE (11:16)
[2022-01-16 11:36] LABS: ALT (SGPT) 36 U/L (8-55); AST (SGOT) 48 U/L (5-34); Albumin 3.5 g/dL (3.4-4.8); Alkaline Phosphatase 85 U/L (40-110); Anion Gap 26 mmol/L (10-20); BUN (Urea Nitrogen) 56 mg/dL (8.4-25.7); Bilirubin, Total 2.3 mg/dL (0.2-1.2); Calc. Creatinine Clearance 0 mL/min (70-130); Calcium 9.3 mg/dL (7.8-10.44); Carbon Dioxide 19 mmol/L (23-31); Chloride 96 mmol/L (98-107); Estimated GFR 25; Glucose 110 mg/dL (83-110); Potassium 5.4 mmol/L (3.5-5.1); Protein, Total 6.5 g/dL (5.8-8.1); Sodium 136 mmol/L (136-145)
[2022-01-16] MEDS ORDERED: Guaifenesin DM 100-10/5 ML UDCUP PO PRN (12:07)
[2022-01-16] MEDS ORDERED: Ondansetron PF 4 MG/2 ML Vial IVP PRN (12:07)
[2022-01-16] MEDS ORDERED: Senokot S 8.6-50 MG TAB PO PRN (12:07)
[2022-01-16] MEDS: Furosemide 40 MG/4 ML VIAL SLOW IVP SCH (16:23)
[2022-01-16] MEDS: Carvedilol 3.125 MG TAB PO SCH (20:47)
[2022-01-16] MEDS: Pregabalin 50 MG CAP PO SCH (20:47)
[2022-01-17 04:45] LABS: #Basophils 0.1 thou/uL (0.0-0.2); #Eosinphils 0.1 thou/uL (0.0-0.7); #Lymphocytes 1.5 thou/uL (1.20-3.40); #Monocytes 1.2 thou/uL (0.11-0.59); #Neutrophils 8.3 thou/uL (1.40-6.50); %Basophils 0.5 % (0.0-1.0); %Eosinophils 0.6 % (0.0-10.0); %Lymphocytes 13.9 % (21.0-51.0); %Monocytes 10.4 % (0.0-10.0); %Neutrophils 74.6 % (42.0-75.0); Hemoglobin 10.6 g/dL (14.0-18.0); Mean Corpuscular Volume 83.7 fL (78.0-98.0); Mean Platelet Volume 12.3 fL (7.4-10.4); Platelet Count 172 thou/uL (130-400); White Blood Cell (WBC) Count 11.1 thou/uL (4.8-10.8)
[2022-01-17 05:02] LABS: Anion Gap 18 mmol/L (10-20); BUN (Urea Nitrogen) 64 mg/dL (8.4-25.7); Calc. Creatinine Clearance 21 mL/min (70-130); Carbon Dioxide 25 mmol/L (23-31); Chloride 95 mmol/L (98-107); Estimated GFR 24; Glucose 113 mg/dL (83-110); Potassium 4.3 mmol/L (3.5-5.1); Sodium 134 mmol/L (136-145)
[2022-01-17] MEDS: Furosemide 40 MG/4 ML VIAL SLOW IVP SCH ×2 (05:52→13:43)
[2022-01-17] MEDS: Enoxaparin Sodium 30 MG/0.3 ML SYRINGE SC SCH (08:27)
[2022-01-17] MEDS: Aspirin Chewable 81 MG TAB PO SCH (08:27)
[2022-01-17] MEDS: Carvedilol 3.125 MG TAB PO SCH ×2 (08:27→21:43)
[2022-01-17] MEDS: Pregabalin 50 MG CAP PO SCH ×2 (08:27→21:43)
[2022-01-18] MEDS: Furosemide 40 MG/4 ML VIAL SLOW IVP SCH ×2 (06:04→15:18)
[2022-01-18] MEDS: Carvedilol 3.125 MG TAB PO SCH ×2 (09:29→21:06)
[2022-01-18] MEDS: Aspirin Chewable 81 MG TAB PO SCH (09:29)
[2022-01-18] MEDS: Pregabalin 50 MG CAP PO SCH ×2 (09:29→21:06)
[2022-01-18] MEDS: Enoxaparin Sodium 30 MG/0.3 ML SYRINGE SC SCH (09:29)
[2022-01-18 11:06] LABS: Anion Gap 15 mmol/L (10-20); BUN (Urea Nitrogen) 62 mg/dL (8.4-25.7); Calc. Creatinine Clearance 23 mL/min (70-130); Calcium 8.9 mg/dL (7.8-10.44); Carbon Dioxide 29 mmol/L (23-31); Chloride 100 mmol/L (98-107); Estimated GFR 26; Glucose 109 mg/dL (83-110); Potassium 3.9 mmol/L (3.5-5.1); Sodium 140 mmol/L (136-145)
[2022-01-18] MEDS: Acetaminophen 325 MG TAB PO PRN (15:18)
[2022-01-19 05:19] LABS: Anion Gap 17 mmol/L (10-20); BUN (Urea Nitrogen) 51 mg/dL (8.4-25.7); Calc. Creatinine Clearance 26 mL/min (70-130); Calcium 8.5 mg/dL (7.8-10.44); Carbon Dioxide 25 mmol/L (23-31); Chloride 102 mmol/L (98-107); Estimated GFR 31; Glucose 124 mg/dL (83-110); Magnesium 2.3 mg/dL (1.6-2.6); Potassium 3.6 mmol/L (3.5-5.1); Sodium 140 mmol/L (136-145)
[2022-01-19] MEDS: Furosemide 40 MG/4 ML VIAL SLOW IVP SCH ×2 (06:20→14:14)
[2022-01-19] MEDS: Carvedilol 3.125 MG TAB PO SCH ×2 (09:53→20:23)
[2022-01-19] MEDS: Pregabalin 50 MG CAP PO SCH ×2 (09:53→20:24)
[2022-01-19] MEDS: Enoxaparin Sodium 30 MG/0.3 ML SYRINGE SC SCH (09:53)
[2022-01-19] MEDS: Aspirin Chewable 81 MG TAB PO SCH (09:53)
[2022-01-19] MEDS: Acetaminophen 325 MG TAB PO PRN (20:23)
[2022-01-20] MEDS ORDERED: Nitroglycerin 0.4 MG TAB (25 Tab Bottle) ONE (03:40)
[2022-01-20] MEDS: Nitroglycerin 0.4 MG TAB (25 Tab Bottle) SL PRN (03:43)
[2022-01-20] MEDS: Calcium Carbonate 500 MG ChewTAB PO PRN (03:43)
[2022-01-20 04:57] LABS: Anion Gap 12 mmol/L (10-20); BUN (Urea Nitrogen) 43 mg/dL (8.4-25.7); Calc. Creatinine Clearance 31 mL/min (70-130); Calcium 8.7 mg/dL (7.8-10.44); Carbon Dioxide 28 mmol/L (23-31); Chloride 105 mmol/L (98-107); Estimated GFR 42; Glucose 97 mg/dL (83-110); Potassium 3.7 mmol/L (3.5-5.1); Sodium 141 mmol/L (136-145)
[2022-01-20 04:59] LABS: Troponin I 0.044 ng/mL (< 0.028)
[2022-01-20] MEDS: Furosemide 40 MG/4 ML VIAL SLOW IVP SCH ×2 (05:27→15:11)
[2022-01-20] MEDS: Aspirin Chewable 81 MG TAB PO SCH (07:52)
[2022-01-20] MEDS: Pregabalin 50 MG CAP PO SCH ×2 (07:52→20:51)
[2022-01-20] MEDS: Carvedilol 3.125 MG TAB PO SCH ×2 (07:53→20:51)
[2022-01-20] MEDS: Enoxaparin Sodium 30 MG/0.3 ML SYRINGE SC SCH (07:53)
[2022-01-20 11:38] LABS: Troponin I 0.038 ng/mL (< 0.028)
[2022-01-21 05:10] LABS: Anion Gap 15 mmol/L (10-20); BUN (Urea Nitrogen) 37 mg/dL (8.4-25.7); Calc. Creatinine Clearance 30 mL/min (70-130); Calcium 8.5 mg/dL (7.8-10.44); Carbon Dioxide 23 mmol/L (23-31); Chloride 103 mmol/L (98-107); Estimated GFR 42; Glucose 100 mg/dL (83-110); Potassium 4.4 mmol/L (3.5-5.1); Sodium 137 mmol/L (136-145)
[2022-01-21] MEDS: Furosemide 40 MG/4 ML VIAL SLOW IVP SCH ×2 (06:02→15:14)
[2022-01-21] MEDS: Pregabalin 50 MG CAP PO SCH ×2 (10:03→19:34)
[2022-01-21] MEDS: Enoxaparin Sodium 30 MG/0.3 ML SYRINGE SC SCH (10:03)
[2022-01-21] MEDS: Aspirin Chewable 81 MG TAB PO SCH (10:04)
[2022-01-21] MEDS: Carvedilol 3.125 MG TAB PO SCH ×2 (10:04→19:34)
[2022-01-22] MEDS: Furosemide 40 MG/4 ML VIAL SLOW IVP SCH ×2 (05:43→15:01)
[2022-01-22] MEDS: Acetaminophen 325 MG TAB PO PRN (05:46)
[2022-01-22] MEDS: Pregabalin 50 MG CAP PO SCH ×2 (07:54→20:26)
[2022-01-22] MEDS: Enoxaparin Sodium 30 MG/0.3 ML SYRINGE SC SCH (07:55)
[2022-01-22] MEDS: Carvedilol 3.125 MG TAB PO SCH ×2 (07:55→20:26)
[2022-01-22] MEDS: Aspirin Chewable 81 MG TAB PO SCH (07:55)
[2022-01-22 08:24] LABS: Anion Gap 16 mmol/L (10-20); BUN (Urea Nitrogen) 35 mg/dL (8.4-25.7); Calc. Creatinine Clearance 29 mL/min (70-130); Calcium 8.7 mg/dL (7.8-10.44); Carbon Dioxide 23 mmol/L (23-31); Chloride 104 mmol/L (98-107); Estimated GFR 41; Glucose 149 mg/dL (83-110); Magnesium 2.2 mg/dL (1.6-2.6); Potassium 4.4 mmol/L (3.5-5.1); Sodium 139 mmol/L (136-145)
[2022-01-23] MEDS: Acetaminophen 325 MG TAB PO PRN (03:24)
[2022-01-23] MEDS: Calcium Carbonate 500 MG ChewTAB PO PRN (03:24)
[2022-01-23] MEDS: Nitroglycerin 0.4 MG TAB (25 Tab Bottle) SL PRN ×3 (03:25→13:47)
[2022-01-23] MEDS: Furosemide 40 MG/4 ML VIAL SLOW IVP SCH ×2 (06:06→13:27)
[2022-01-23 07:05] LABS: Anion Gap 18 mmol/L (10-20); BUN (Urea Nitrogen) 36 mg/dL (8.4-25.7); Calc. Creatinine Clearance 28 mL/min (70-130); Calcium 8.8 mg/dL (7.8-10.44); Carbon Dioxide 19 mmol/L (23-31); Chloride 105 mmol/L (98-107); Estimated GFR 40; Glucose 110 mg/dL (83-110); Sodium 137 mmol/L (136-145)
[2022-01-23] MEDS: Carvedilol 3.125 MG TAB PO SCH ×2 (10:18→20:41)
[2022-01-23] MEDS: Enoxaparin Sodium 30 MG/0.3 ML SYRINGE SC SCH (10:18)
[2022-01-23] MEDS: Pregabalin 50 MG CAP PO SCH ×2 (10:19→20:41)
[2022-01-23] MEDS: Aspirin Chewable 81 MG TAB PO SCH (10:21)
[2022-01-23 14:39] LABS: Troponin I 0.021 ng/mL (< 0.028)
[2022-01-23 17:04] LABS: Troponin I 0.026 ng/mL (< 0.028)
[2022-01-23 20:26] LABS: Troponin I 0.025 ng/mL (< 0.028)
[2022-01-24 05:07] LABS: Anion Gap 17 mmol/L (10-20); BUN (Urea Nitrogen) 42 mg/dL (8.4-25.7); Calc. Creatinine Clearance 28 mL/min (70-130); Calcium 8.8 mg/dL (7.8-10.44); Carbon Dioxide 20 mmol/L (23-31); Chloride 104 mmol/L (98-107); Estimated GFR 40; Glucose 97 mg/dL (83-110); Potassium 4.7 mmol/L (3.5-5.1); Sodium 136 mmol/L (136-145)
[2022-01-24] MEDS: Furosemide 40 MG/4 ML VIAL SLOW IVP SCH ×2 (06:05→14:00)
[2022-01-24] MEDS: Pregabalin 50 MG CAP PO SCH (09:32)
[2022-01-24] MEDS: Aspirin Chewable 81 MG TAB PO SCH (09:32)
[2022-01-24] MEDS: Carvedilol 3.125 MG TAB PO SCH (09:32)
[2022-01-24] MEDS: Enoxaparin Sodium 30 MG/0.3 ML SYRINGE SC SCH (09:32)
[2022-01-24 12:00] VITALS: BP 128/87; TEMP 97.9
== END 2022-01-24 18:16 | disposition home health service (06) | DRG 291 ==
LOC: ERS 09:15 → 2SW 11:38 → OBSVTOIN 01-18 12:25
PROVIDERS: ADMIT Internal Medicine; ATTEND Internal Medicine
DX: I13.0 Hypertensive heart and chronic kidney disease with heart failure and stage 1 through stage 4 chronic kidney disease, or unspecified chronic kidney disease (principal); I50.23 Acute on chronic systolic (congestive) heart failure; J96.01 Acute respiratory failure with hypoxia; N17.9 Acute kidney failure, unspecified; N18.4 Chronic kidney disease, stage 4 (severe); E87.2 Acidosis; Z20.822 Contact with and (suspected) exposure to COVID-19; R07.89 Other chest pain; D63.1 Anemia in chronic kidney disease; R33.8 Other retention of urine; F41.9 Anxiety disorder, unspecified; J44.9 Chronic obstructive pulmonary disease, unspecified; E78.5 Hyperlipidemia, unspecified; F17.290 Nicotine dependence, other tobacco product, uncomplicated; E87.5 Hyperkalemia; I42.8 Other cardiomyopathies; Z60.2 Problems related to living alone; Z83.3 Family history of diabetes mellitus; Z91.19 Patient's noncompliance with other medical treatment and regimen; Z91.14 Patient's other noncompliance with medication regimen; Z79.899 Other long term (current) drug therapy; Z82.49 Family history of ischemic heart disease and other diseases of the circulatory system
CPT/HCPCS: 36415; 71045; 80048; 80053; 82553; 83735; 83880; 84443; 84484; 85025; 93005; 93010; 94640; 96372; 96374; 96376; G0378; J1650; J1940; J7620; U0003; U0005

== ENCOUNTER 2022-04-05 06:17 | Inpatient (IN) | payer OTHER ==
[2022-04-05] MEDS ORDERED: Dexamethasone 10 MG/ML VIAL ONE (06:27)
[2022-04-05] MEDS ORDERED: methylPREDNISolone Sod Succ/PF 125 MG/2 ML VIAL ONE (06:27)
[2022-04-05] MEDS ORDERED: Magnesium 2 GM/50 ML BAG (IN WATER) ONE (06:27)
[2022-04-05] MEDS ORDERED: Nitroglycerin 50 MG/250 ML BOT 250 ML ONE (06:31)
[2022-04-05 06:47] LABS: Actual Bicarbonate (HCO3v) 19 mEq/L (22-28); Analyzer IN Cardio ER; Base Excess -6.3 mEq/L (-2.0 to +3.0); Hemoglobin (Hb) 12.3 g/dL (12.6-17.4); pH (venous) 7.31 (7.32-7.43)
[2022-04-05 06:48] LABS: Calcium, Ionized (venous) 1.13 mmol/L (1.16-1.32); Chloride (VBG) 112 mmol/L (98-106); Sodium 139.3 mmol/L (133-146)
[2022-04-05] MEDS ORDERED: Furosemide 40 MG/4 ML VIAL ONE (06:49)
[2022-04-05] MEDS ORDERED: cefTRIAXone\\ROCEPHIN 2 GM VIAL ONE (06:49)
[2022-04-05 07:11] LABS: #Eosinphils 0.2 thou/uL (0.0-0.7); #Lymphocytes 2.7 thou/uL (1.20-3.40); #Monocytes 0.7 thou/uL (0.11-0.59); #Neutrophils 9.3 thou/uL (1.40-6.50); %Basophils 0.3 % (0.0-1.0); %Eosinophils 1.3 % (0.0-10.0); %Monocytes 5.1 % (0.0-10.0); %Neutrophils 72.3 % (42.0-75.0); Hemoglobin 11.3 g/dL (14.0-18.0); Mean Corpuscular Hemoglobin 23.7 pg (27.0-31.0); Mean Corpuscular Volume 76.4 fl (78.0-98.0); Mean Platelet Volume 9.3 fL (7.4-10.4); Platelet Count 145 10x3/uL (130-400); RBC Distribution Width 24.2 % (11.5-14.5); Red Blood Cell (RBC) Count 4.76 mill/uL (4.70-6.10); White Blood Cell (WBC) Count 12.8 10x3/uL (4.8-10.8)
[2022-04-05 07:25] LABS: ALT (SGPT) 18 U/L (8-55); AST (SGOT) 22 U/L (5-34); Albumin 4.4 g/dL (3.4-4.8); Alkaline Phosphatase 83 U/L (40-110); Anion Gap 13 mmol/L (10-20); BUN (Urea Nitrogen) 15 mg/dL (8.4-25.7); Bilirubin, Total 1.3 mg/dL (0.2-1.2); Calc. Creatinine Clearance 0 mL/min (70-130); Calcium 9.2 mg/dL (7.8-10.44); Carbon Dioxide 19 mmol/L (23-31); Chloride 111 mmol/L (98-107); Estimated GFR 50; Globulin 3.2 g/dL (2.4-3.5); Glucose 159 mg/dL (83-110); Magnesium 2.9 mg/dL (1.6-2.6); Potassium 3.7 mmol/L (3.5-5.1); Protein, Total 7.6 g/dL (5.8-8.1); Sodium 139 mmol/L (136-145)
[2022-04-05] MEDS ORDERED: Azithromycin 500 MG VIAL ONE (07:43)
[2022-04-05] MEDS ORDERED: Ipratropium Bromide 2.5 ml Neb ONE (07:45)
[2022-04-05 08:05] LABS: SARS-CoV-2 NAA Rapid Test Not Detected (NotDetected)
[2022-04-05 08:10] LABS: MDiff Complete? YES; Microcytosis SLIGHT = 6-15 cells (100X) (0-5/hpf); Platelet Morphology Comment Appears Adequate; Polychromasia SLIGHT = 2-3 cells (100X) (0-2/hpf)
[2022-04-05] MEDS ORDERED: Aspirin 81 mg Enteric Coated Tablet PO SCH (09:30)
[2022-04-05] MEDS ORDERED: Sertraline 100 MG TAB PO SCH (09:30)
[2022-04-05 10:57] LABS: Iron 48 ug/dL (65-175); Iron Binding Capacity, Total 348 mcg/dL (261-462)
[2022-04-05 11:48] LABS: Bilirubin Negative (Negative); Blood, Urine Negative (Negative); Clarity Clear (Clear); Glucose, Urine (Dipstick) Normal (Negative); Ketone, Urine Negative (Negative); Leukocyte 25 Leu/uL (Negative); Nitrite 2+ (Negative); Protein, Urine (Dipstick) Negative (Neg-Trace); RBC/HPF 0-3 HPF (0-3); Specific Gravity, Urine 1.007 (1.002-1.036); Squamous Epithelial None Seen HPF (0-3); Urobilinogen Normal mg/dL (Less than 2)
[2022-04-05 11:49] LABS: Bacteria/HPF 1+ HPF (None Seen); Urine Culture Reflex Yes Yes
[2022-04-05] MEDS ORDERED: FLU VACC QS2022-23(65YR UP)/PF 240 MCG/0.7 ML SYRINGE IM ONE (12:00)
[2022-04-05 16:26] LABS: Amphetamine Not Detected (NotDetected); Barbiturates Screen Not Detected (NotDetected); Benzodiazepine Screen Not Detected (NotDetected); Cocaine Metabolite Screen Not Detected (NotDetected); Methadone Not Detected (NotDetected); Methamphetamine Not Detected (NotDetected); Opiate Screen Not Detected (NotDetected); Oxycodone Screen Not Detected (NotDetected); Phencyclidine (PCP) Not Detected (NotDetected); THC/Cannabinoid Screen Not Detected (NotDetected); Tricyclic Screen Not Detected (NotDetected)
[2022-04-05] MEDS: Simvastatin 10 MG TAB PO SCH (20:42)
[2022-04-05] MEDS: Melatonin 3 MG TAB PO SCH (20:42)
[2022-04-05] MEDS ORDERED: traZODone HCl 50 MG TAB PO SCH (21:00)
[2022-04-05] MEDS ORDERED: Enoxaparin Sodium 30 MG/0.3 ML SYRINGE SC SCH (21:00)
[2022-04-05] MEDS ORDERED: Furosemide 40 MG/4 ML VIAL SLOW IVP SCH (21:00)
[2022-04-05] MEDS: cefTRIAXone\\ROCEPHIN 1 GM in Sodium Chloride 0.9% 100 ML IVPB SCH (23:35)
[2022-04-06 04:26] LABS: ALT (SGPT) 14 U/L (8-55); AST (SGOT) 22 U/L (5-34); Albumin 3.8 g/dL (3.4-4.8); Alkaline Phosphatase 79 U/L (40-110); Anion Gap 17 mmol/L (10-20); BUN (Urea Nitrogen) 23 mg/dL (8.4-25.7); Calc. Creatinine Clearance 31 mL/min (70-130); Calcium 9.1 mg/dL (7.8-10.44); Carbon Dioxide 16 mmol/L (23-31); Chloride 108 mmol/L (98-107); Estimated GFR 47; Globulin 3.6 g/dL (2.4-3.5); Glucose 120 mg/dL (83-110); Potassium 5.3 mmol/L (3.5-5.1); Protein, Total 7.4 g/dL (5.8-8.1); Sodium 136 mmol/L (136-145)
[2022-04-06 07:02] LABS: #Lymphocytes 1.1 thou/uL (1.20-3.40); #Monocytes 1.1 thou/uL (0.11-0.59); #Neutrophils 11.8 thou/uL (1.40-6.50); %Basophils 0.1 % (0.0-1.0); %Lymphocytes 7.7 % (21.0-51.0); %Neutrophils 84.1 % (42.0-75.0); Hemoglobin 9.9 g/dL (14.0-18.0); MDiff Complete? YES; Mean Corpuscular HGB CONC 31.1 g/dL (32.0-36.0); Mean Corpuscular Hemoglobin 23.4 pg (27.0-31.0); Mean Corpuscular Volume 75.3 fl (78.0-98.0); Mean Platelet Volume 8.4 fL (7.4-10.4); Platelet Count 140 10x3/uL (130-400); Platelet Morphology Comment Appears Adequate; RBC Distribution Width 23.9 % (11.5-14.5); Red Blood Cell (RBC) Count 4.24 mill/uL (4.70-6.10); Schistocytes SLIGHT = 2-5 cells (100X) (0-1/hpf)
[2022-04-06] MEDS ORDERED: Ferrous Sulfate 325 MG TAB PO SCH (08:00)
[2022-04-06] MEDS: Heparin 5,000 UNITS/ML VIAL SC SCH ×2 (08:23→14:22)
[2022-04-06] MEDS: Sertraline 100 MG TAB PO SCH (08:23)
[2022-04-06] MEDS: Aspirin 81 mg Enteric Coated Tablet PO SCH (08:23)
[2022-04-06] MEDS ORDERED: Furosemide 40 MG/4 ML VIAL SLOW IVP SCH (09:00)
[2022-04-06 13:22] LABS: Potassium 4.2 mmol/L (3.5-5.1)
[2022-04-06] MEDS: Acetaminophen 325 MG TAB PO PRN (14:20)
[2022-04-06 14:34] VITALS: BMI 18.1
[2022-04-06] MEDS ORDERED: Polyethylene Glycol 3350 17 GM Packet PO PRN (17:10)
[2022-04-06] MEDS: Pregabalin 25 MG CAP PO SCH (20:39)
[2022-04-06] MEDS: Simvastatin 10 MG TAB PO SCH (20:40)
[2022-04-06] MEDS: Fluticasone Propionate Nasal Spray 16 gm Bottle NASAL PRN (23:02)
[2022-04-06] MEDS: Melatonin 3 MG TAB PO SCH (23:02)
[2022-04-06] MEDS: cefTRIAXone\\ROCEPHIN 1 GM in Sodium Chloride 0.9% 100 ML IVPB SCH (23:07)
[2022-04-07 05:37] LABS: #Basophils 0.1 thou/uL (0.0-0.2); #Eosinphils 0.1 thou/uL (0.0-0.7); #Lymphocytes 2.6 thou/uL (1.20-3.40); #Monocytes 0.8 thou/uL (0.11-0.59); #Neutrophils 8.1 thou/uL (1.40-6.50); %Basophils 0.9 % (0.0-1.0); %Lymphocytes 22.1 % (21.0-51.0); %Monocytes 6.8 % (0.0-10.0); %Neutrophils 69.2 % (42.0-75.0); Mean Corpuscular HGB CONC 32.4 g/dL (32.0-36.0); Mean Corpuscular Hemoglobin 24.7 pg (27.0-31.0); Mean Corpuscular Volume 76.2 fl (78.0-98.0); Mean Platelet Volume 8.5 fL (7.4-10.4); Platelet Count 141 10x3/uL (130-400); RBC Distribution Width 23.6 % (11.5-14.5); Red Blood Cell (RBC) Count 4.48 mill/uL (4.70-6.10); White Blood Cell (WBC) Count 11.7 10x3/uL (4.8-10.8)
[2022-04-07 05:51] LABS: ALT (SGPT) 12 U/L (8-55); AST (SGOT) 12 U/L (5-34); Albumin 3.7 g/dL (3.4-4.8); Alkaline Phosphatase 68 U/L (40-110); Anion Gap 11 mmol/L (10-20); BUN (Urea Nitrogen) 24 mg/dL (8.4-25.7); Bilirubin, Total 0.6 mg/dL (0.2-1.2); Calc. Creatinine Clearance 35 mL/min (70-130); Calcium 9.1 mg/dL (7.8-10.44); Carbon Dioxide 22 mmol/L (23-31); Chloride 108 mmol/L (98-107); Estimated GFR 57; Globulin 2.9 g/dL (2.4-3.5); Glucose 92 mg/dL (83-110); Protein, Total 6.6 g/dL (5.8-8.1); Sodium 137 mmol/L (136-145)
[2022-04-07 08:25] LABS: Cardiac Risk 2.6 (Less than 4.5)
[2022-04-07] MEDS ORDERED: Fluticasone Propionate Nasal Spray 16 gm Bottle NASAL SCH (09:00)
[2022-04-07] MEDS ORDERED: Enoxaparin Sodium 30 MG/0.3 ML SYRINGE SC SCH (09:00)
[2022-04-07] MEDS ORDERED: Furosemide 40 MG TAB PO SCH (09:00)
[2022-04-07] MEDS: Pregabalin 25 MG CAP PO SCH (11:27)
[2022-04-07] MEDS: Aspirin 81 mg Enteric Coated Tablet PO SCH (11:28)
[2022-04-07] MEDS: Sertraline 100 MG TAB PO SCH (11:28)
[2022-04-07 16:16] VITALS: BP 127/74; TEMP 97.5
[2022-04-07] MEDS: Acetaminophen 325 MG TAB PO PRN (16:36)
[2022-04-07] MEDS: Fluticasone Propionate Nasal Spray 16 gm Bottle NASAL PRN (16:36)
[2022-04-07] MEDS ORDERED: Carvedilol 3.125 MG TAB PO SCH (17:00)
[2022-04-08] MEDS ORDERED: Ferrous Sulfate 325 MG TAB PO SCH (09:00)
== END 2022-04-07 18:22 | disposition home or self-care (01) | DRG 291 ==
LOC: ERS 06:17 → CCU 10:41 → NEURO 04-06 11:15
PROVIDERS: ADMIT Student in an Organized Health Care Education/Training Program; ATTEND Student in an Organized Health Care Education/Training Program
DX: I13.0 Hypertensive heart and chronic kidney disease with heart failure and stage 1 through stage 4 chronic kidney disease, or unspecified chronic kidney disease (principal); I50.23 Acute on chronic systolic (congestive) heart failure; J96.01 Acute respiratory failure with hypoxia; N17.9 Acute kidney failure, unspecified; E87.20 Acidosis, unspecified; N39.0 Urinary tract infection, site not specified; E44.0 Moderate protein-calorie malnutrition; Z68.1 Body mass index [BMI] 19.9 or less, adult; Z20.822 Contact with and (suspected) exposure to COVID-19; D63.1 Anemia in chronic kidney disease; F17.210 Nicotine dependence, cigarettes, uncomplicated; F41.9 Anxiety disorder, unspecified; G47.33 Obstructive sleep apnea (adult) (pediatric); I42.9 Cardiomyopathy, unspecified; N18.30 Chronic kidney disease, stage 3 unspecified; Z91.14 Patient's other noncompliance with medication regimen; Z79.899 Other long term (current) drug therapy; Z79.82 Long term (current) use of aspirin
CPT/HCPCS: 36415; 71045; 80053; 80061; 80306; 81001; 82728; 82805; 83540; 83550; 83605; 83735; 83880; 84145; 84484; 85025; 87040; 87077; 87086; 87149; 93005; 93306; 93798; 94660; J0456; J0696; J1100; J1644; J1650; J1940; J2930; J3475; J3490

== ENCOUNTER 2023-02-15 08:26 | Outpatient (CLI) | payer OTHER, MEDICAID | END 2023-02-15 08:27 | disposition home or self-care (01) | LOC: MRI 08:26 | PROVIDERS: ATTEND Nurse Practitioner Family | DX: M54.12 Radiculopathy, cervical region (principal); M54.50 Low back pain, unspecified; M48.02 Spinal stenosis, cervical region; M47.816 Spondylosis without myelopathy or radiculopathy, lumbar region; M48.061 Spinal stenosis, lumbar region without neurogenic claudication; Q76.49 Other congenital malformations of spine, not associated with scoliosis; M47.24 Other spondylosis with radiculopathy, thoracic region; M51.14 Intervertebral disc disorders with radiculopathy, thoracic region; Z98.1 Arthrodesis status | CPT/HCPCS: 72141; 72146; 72148 ==

== ENCOUNTER 2023-07-18 10:21 | Outpatient (CLI) | payer OTHER, MEDICAID | END 2023-07-18 10:22 | disposition home or self-care (01) | LOC: RAD 10:21 | PROVIDERS: ATTEND Internal Medicine | DX: R06.00 Dyspnea, unspecified (principal); J98.4 Other disorders of lung; Z98.890 Other specified postprocedural states | CPT/HCPCS: 71046 ==

== ENCOUNTER 2023-11-05 11:39 | Inpatient (IN) | payer OTHER, MEDICAID ==
[2023-11-05 13:51] LABS: ALT (SGPT) 31 U/L (8-55); AST (SGOT) 69 U/L (5-34); Albumin 3.7 g/dL (3.4-4.8); Alkaline Phosphatase 100 U/L (40-110); Anion Gap 21 mmol/L (10-20); BUN (Urea Nitrogen) 58 mg/dL (8.4-25.7); Bilirubin, Total 3.9 mg/dL (0.2-1.2); Calc. Creatinine Clearance 0 mL/min (70-130); Calcium 9.3 mg/dL (7.8-10.44); Carbon Dioxide 13 mmol/L (23-31); Chloride 108 mmol/L (98-107); Estimated GFR 24; Globulin 3.2 g/dL (2.4-3.5); Glucose 84 mg/dL (83-110); Lipase 15 U/L (8-78); Potassium 6.9 mmol/L (3.5-5.1); Protein, Total 6.9 g/dL (5.8-8.1); Sodium 135 mmol/L (136-145)
[2023-11-05 14:36] LABS: #Basophils 0.04 10x3/uL (0.0-0.2); #Eosinphils Less than 0.03 10x3/uL (0.0-0.7); %Basophils 0.4 % (0.0-1.0); %Lymphocytes 15.5 % (21.0-51.0); %Monocytes 10.8 % (0.0-10.0); %Neutrophils 72.9 % (42.0-75.0); Hematocrit 41.8 % (42.0-52.0); Hemoglobin 13.9 g/dL (14.0-18.0); Mean Corpuscular HGB CONC 33.3 g/dL (32.0-36.0); Mean Corpuscular Hemoglobin 28.3 pg (27.0-31.0); Mean Corpuscular Volume 85.1 fL (78.0-98.0); Platelet Count 127 10x3/uL (130-400); RBC Distribution Width 20.7 % (11.5-14.5); Red Blood Cell (RBC) Count 4.91 mill/uL (4.70-6.10)
[2023-11-05] MEDS ORDERED: Pantoprazole 40 MG VIAL ONE (16:40)
[2023-11-05] MEDS ORDERED: Sodium Bicarb 50 mEq/50 ML VIAL ONE (16:40)
[2023-11-05] MEDS ORDERED: Insulin Regular, Human 100 UNIT/ML 10 ML VIAL ONE (16:42)
[2023-11-05] MEDS ORDERED: Acetaminophen 650 MG Suppository PR PRN (16:44)
[2023-11-05] MEDS ORDERED: diphenhydrAMINE 50 MG/ML VIAL IVP PRN (17:01)
[2023-11-05] MEDS ORDERED: hydrALAZINE 20 MG/ML VIAL SLOW IVP PRN (17:01)
[2023-11-05] MEDS ORDERED: Dextrose 5 %-0.45 % NaCl 1,000 ML IV SCH (17:02)
[2023-11-05] MEDS ORDERED: Sodium Bicarb 50 MEQ/50 ML Abboject 8.4% SYRINGE ONE (17:05)
[2023-11-05 17:14] LABS: Actual Bicarbonate (HCO3a) 23.6 mEq/L (22-28); Analyzer IN Cardio ER; Base Excess (BEa) 0.1 mEq/L (-2.0 to +3.0); CO2 Tension 34.6 mmHg (35.0-45.0); Calcium, Ionized (arterial) 1.08 mmol/L (1.12-1.30); Carboxyhemoglobin (COHb) 2.2 gm% (0.0-3.0); Hematocrit-ABG 36 % (42.0-52.0); Hemoglobin (Hb) 12.4 g/dL (14.0-18.0); Potassium - ABG Lab 5.68 mmol/L (3.70-5.30); pH, Arterial 7.452 (7.35-7.45)
[2023-11-05 17:17] LABS: O2 Tension (PaO2), arterial 20.1 mmHg (> 70.0); Puncture Site LBA
[2023-11-05 17:55] LABS: Free T4 (Free Thyroxine) 1.02 ng/dL (0.70-1.48)
[2023-11-05 18:10] LABS: INR-International Normal Ratio 2.1; PTT 45.8 sec (22.9-36.1)
[2023-11-05 18:15] LABS: Phosphorus 4.9 mg/dL (2.3-4.7)
[2023-11-05 18:31] LABS: Anion Gap 25 mmol/L (10-20); BUN (Urea Nitrogen) 61 mg/dL (8.4-25.7); Calc. Creatinine Clearance 0 mL/min (70-130); Calcium 8.9 mg/dL (7.8-10.44); Carbon Dioxide 15 mmol/L (23-31); Chloride 107 mmol/L (98-107); Estimated GFR 24; Glucose 86 mg/dL (83-110); Magnesium 2.4 mg/dL (1.6-2.6); Potassium 6.2 mmol/L (3.5-5.1); Sodium 141 mmol/L (136-145)
[2023-11-05] MEDS: Sodium Bicarb 50 mEq/50 ML VIAL IVP SCH (19:31)
[2023-11-05] MEDS: Sodium Bicarbonate 150 MEQ in Dextrose 5% in Water 1,000 ML IV SCH (20:17)
[2023-11-05 20:18] LABS: Actual Bicarbonate (HCO3a) 21.3 mEq/L (22-28); Base Excess (BEa) -0.4 mEq/L (-2.0 to +3.0); CO2 Tension 27.3 mmHg (35.0-45.0); Calcium, Ionized (arterial) 1.07 mmol/L (1.12-1.30); Hematocrit-ABG 39 % (42.0-52.0); Hemoglobin (Hb) 13.4 g/dL (14.0-18.0); Potassium - ABG Lab 5.07 mmol/L (3.70-5.30); pH, Arterial 7.511 (7.35-7.45)
[2023-11-05 20:20] LABS: Puncture Site LBA
[2023-11-05 22:56] LABS: Anion Gap 21 mmol/L (10-20); BUN (Urea Nitrogen) 66 mg/dL (8.4-25.7); Calc. Creatinine Clearance 17 mL/min (70-130); Calcium 8.4 mg/dL (7.8-10.44); Carbon Dioxide 20 mmol/L (23-31); Chloride 108 mmol/L (98-107); Estimated GFR 23; Glucose 138 mg/dL (83-110); Sodium 144 mmol/L (136-145)
[2023-11-05] MEDS: Heparin 5,000 UNITS/ML VIAL SC SCH (23:38)
[2023-11-05] MEDS: Nicotine 14 MG PATCH TD SCH ×2 (23:39→23:53)
[2023-11-05] MEDS: Lidocaine 2% Viscous 10 mL, Alum & Magn 30 mL SSW SCH (23:52)
[2023-11-05] MEDS: LOKELMA 10 GM PACKET PO SCH ×2 (23:52)
[2023-11-05] MEDS: Sodium Chloride 0.9% 500 ML IV SCH (23:52)
[2023-11-05] MEDS: Dextrose 50% Abboject 50 ML SYRINGE SLOW IVP SCH (23:52)
[2023-11-05] MEDS: Dextrose 5 %-0.45 % NaCl 1,000 ML IV SCH (23:53)
[2023-11-05] MEDS: Sodium Bicarbonate 150 mEq in Dextrose 5% IV SCH (23:54)
[2023-11-05] MEDS: Pantoprazole 40 MG VIAL IVP SCH (23:54)
[2023-11-06] MEDS ORDERED: Albuterol 200 PUFF (6.7GM INHALER) INH PRN (04:04)
[2023-11-06] MEDS: Ipratropium/Albuterol 3 ML NEB NEB PRN (04:36)
[2023-11-06 05:04] LABS: #Basophils 0.04 10x3/uL (0.0-0.2); #Eosinphils Less than 0.03 10x3/uL (0.0-0.7); %Basophils 0.5 % (0.0-1.0); %Eosinophils 0.1 % (0.0-10.0); %Lymphocytes 17.1 % (21.0-51.0); %Monocytes 11.1 % (0.0-10.0); %Neutrophils 70.8 % (42.0-75.0); Hematocrit 35.7 % (42.0-52.0); Hemoglobin 12.3 g/dL (14.0-18.0); Mean Corpuscular HGB CONC 34.5 g/dL (32.0-36.0); Mean Corpuscular Hemoglobin 28.1 pg (27.0-31.0); Mean Corpuscular Volume 81.7 fL (78.0-98.0); Platelet Count 126 10x3/uL (130-400); RBC Distribution Width 19.7 % (11.5-14.5); Red Blood Cell (RBC) Count 4.37 mill/uL (4.70-6.10)
[2023-11-06 05:17] LABS: ALT (SGPT) 61 U/L (8-55); AST (SGOT) 113 U/L (5-34); Albumin 3.2 g/dL (3.4-4.8); Alkaline Phosphatase 88 U/L (40-110); Anion Gap 20 mmol/L (10-20); BUN (Urea Nitrogen) 66 mg/dL (8.4-25.7); Bilirubin, Total 2.6 mg/dL (0.2-1.2); Calc. Creatinine Clearance 18 mL/min (70-130); Calcium 8.3 mg/dL (7.8-10.44); Carbon Dioxide 20 mmol/L (23-31); Chloride 105 mmol/L (98-107); Estimated GFR 23; Globulin 2.8 g/dL (2.4-3.5); Glucose 127 mg/dL (83-110); Potassium 5.1 mmol/L (3.5-5.1); Sodium 140 mmol/L (136-145)
[2023-11-06] MEDS: Pantoprazole 40 MG VIAL IVP SCH (09:55)
[2023-11-06] MEDS: LOKELMA 10 GM PACKET PO SCH (09:55)
[2023-11-06] MEDS: Phytonadione 5 MG TAB PO SCH (14:23)
[2023-11-07] MEDS: Morphine 4 MG/ML VIAL SLOW IVP SCH ×2 (00:45→20:53)
[2023-11-07 04:42] LABS: #Basophils 0.03 10x3/uL (0.0-0.2); %Basophils 0.4 % (0.0-1.0); %Eosinophils 0.7 % (0.0-10.0); %Lymphocytes 14.6 % (21.0-51.0); %Monocytes 9.7 % (0.0-10.0); %Neutrophils 74.1 % (42.0-75.0); Hematocrit 34.9 % (42.0-52.0); Hemoglobin 11.8 g/dL (14.0-18.0); Mean Corpuscular HGB CONC 33.8 g/dL (32.0-36.0); Mean Corpuscular Hemoglobin 28.4 pg (27.0-31.0); Mean Corpuscular Volume 84.1 fL (78.0-98.0); Platelet Count 104 10x3/uL (130-400); RBC Distribution Width 19.3 % (11.5-14.5); Red Blood Cell (RBC) Count 4.15 mill/uL (4.70-6.10)
[2023-11-07 05:06] LABS: ALT (SGPT) 200 U/L (8-55); AST (SGOT) 339 U/L (5-34); Alkaline Phosphatase 83 U/L (40-110); Anion Gap 14 mmol/L (10-20); BUN (Urea Nitrogen) 54 mg/dL (8.4-25.7); Bilirubin, Total 2.7 mg/dL (0.2-1.2); Calc. Creatinine Clearance 0 mL/min (70-130); Calcium 8.1 mg/dL (7.8-10.44); Carbon Dioxide 32 mmol/L (23-31); Chloride 96 mmol/L (98-107); Estimated GFR 29; Globulin 2.5 g/dL (2.4-3.5); Glucose 124 mg/dL (83-110); Potassium 3.6 mmol/L (3.5-5.1); Protein, Total 5.5 g/dL (5.8-8.1); Sodium 138 mmol/L (136-145)
[2023-11-07] MEDS ORDERED: Lidocaine 1% PF 5 ML VIAL ONE (07:23)
[2023-11-07] MEDS ORDERED: PROPOFOL 20 ML ONE (07:23)
[2023-11-07] MEDS ORDERED: GLYCOPYRROLATE/PF 0.2 MG/ML VIAL ONE (09:28)
[2023-11-07] MEDS ORDERED: Etomidate 40 MG (20 mL) VIAL ONE (09:32)
[2023-11-07] MEDS: Ipratropium/Albuterol 3 ML NEB NEB SCH (20:18)
[2023-11-08] MEDS: Lorazepam 2 MG/ML VIAL SLOW IVP SCH (03:07)
[2023-11-08 05:06] LABS: #Basophils 0.03 10x3/uL (0.0-0.2); %Basophils 0.4 % (0.0-1.0); %Eosinophils 1.3 % (0.0-10.0); %Lymphocytes 13.6 % (21.0-51.0); %Monocytes 10.8 % (0.0-10.0); %Neutrophils 73.5 % (42.0-75.0); Hematocrit 34.8 % (42.0-52.0); Hemoglobin 11.7 g/dL (14.0-18.0); Mean Corpuscular HGB CONC 33.6 g/dL (32.0-36.0); Mean Corpuscular Hemoglobin 28.2 pg (27.0-31.0); Mean Corpuscular Volume 83.9 fL (78.0-98.0); Platelet Count 98 10x3/uL (130-400); Red Blood Cell (RBC) Count 4.15 mill/uL (4.70-6.10)
[2023-11-08 05:13] LABS: INR-International Normal Ratio 1.3; Prothrombin Time 16.4 sec (12.0-14.7)
[2023-11-08 05:32] LABS: ALT (SGPT) 160 U/L (8-55); AST (SGOT) 161 U/L (5-34); Albumin 3.3 g/dL (3.4-4.8); Alkaline Phosphatase 86 U/L (40-110); Anion Gap 19 mmol/L (10-20); BUN (Urea Nitrogen) 40 mg/dL (8.4-25.7); Bilirubin, Total 2.6 mg/dL (0.2-1.2); Calc. Creatinine Clearance 25 mL/min (70-130); Calcium 8.4 mg/dL (7.8-10.44); Carbon Dioxide 28 mmol/L (23-31); Chloride 99 mmol/L (98-107); Estimated GFR 33; Globulin 2.7 g/dL (2.4-3.5); Glucose 110 mg/dL (83-110); Potassium 3.6 mmol/L (3.5-5.1); Sodium 142 mmol/L (136-145)
[2023-11-08] MEDS: Ampicillin/Sulbactam 3 GM in Sodium Chloride 0.9% 100 ML IVPB SCH (16:39)
[2023-11-08] MEDS: Furosemide 20 MG TAB PO SCH (18:08)
[2023-11-08] MEDS: Pregabalin 25 MG CAP PO PRN (21:41)
[2023-11-09] MEDS: Ondansetron PF 4 MG/2 ML Vial IVP PRN (02:42)
[2023-11-09 04:52] LABS: #Basophils 0.03 10x3/uL (0.0-0.2); %Basophils 0.4 % (0.0-1.0); %Lymphocytes 12.2 % (21.0-51.0); %Monocytes 10.9 % (0.0-10.0); Hematocrit 35.9 % (42.0-52.0); Mean Corpuscular HGB CONC 33.4 g/dL (32.0-36.0); Mean Corpuscular Hemoglobin 28.3 pg (27.0-31.0); Mean Corpuscular Volume 84.7 fL (78.0-98.0); Platelet Count 90 10x3/uL (130-400); Red Blood Cell (RBC) Count 4.24 mill/uL (4.70-6.10)
[2023-11-09 05:17] LABS: ALT (SGPT) 110 U/L (8-55); AST (SGOT) 87 U/L (5-34); Albumin 3.3 g/dL (3.4-4.8); Alkaline Phosphatase 82 U/L (40-110); Anion Gap 19 mmol/L (10-20); BUN (Urea Nitrogen) 39 mg/dL (8.4-25.7); Bilirubin, Total 3.2 mg/dL (0.2-1.2); Calc. Creatinine Clearance 26 mL/min (70-130); Calcium 8.7 mg/dL (7.8-10.44); Carbon Dioxide 23 mmol/L (23-31); Chloride 100 mmol/L (98-107); Estimated GFR 32; Globulin 2.8 g/dL (2.4-3.5); Glucose 101 mg/dL (83-110); Protein, Total 6.1 g/dL (5.8-8.1); Sodium 138 mmol/L (136-145)
[2023-11-09] MEDS: Furosemide 20 MG (2 mL) VIAL SLOW IVP SCH (05:37)
[2023-11-09] MEDS ORDERED: Furosemide 20 MG TAB PO SCH ×3 (09:00→18:00)
[2023-11-09] MEDS: Pregabalin 25 MG CAP PO SCH ×2 (11:58→22:18)
[2023-11-09] MEDS: Acetaminophen 325 MG TAB PO PRN (22:29)
[2023-11-10 05:39] LABS: ALT (SGPT) 97 U/L (8-55); AST (SGOT) 67 U/L (5-34); Albumin 3.4 g/dL (3.4-4.8); Alkaline Phosphatase 97 U/L (40-110); Anion Gap 21 mmol/L (10-20); BUN (Urea Nitrogen) 46 mg/dL (8.4-25.7); Bilirubin, Total 2.8 mg/dL (0.2-1.2); Calc. Creatinine Clearance 19 mL/min (70-130); Calcium 9.1 mg/dL (7.8-10.44); Carbon Dioxide 24 mmol/L (23-31); Chloride 100 mmol/L (98-107); Estimated GFR 24; Globulin 3.1 g/dL (2.4-3.5); Glucose 102 mg/dL (83-110); Potassium 4.3 mmol/L (3.5-5.1); Protein, Total 6.5 g/dL (5.8-8.1); Sodium 141 mmol/L (136-145)
[2023-11-10 06:39] LABS: Hematocrit 38.2 % (42.0-52.0); Hemoglobin 12.6 g/dL (14.0-18.0); Mean Corpuscular Hemoglobin 27.8 pg (27.0-31.0); Mean Corpuscular Volume 84.3 fL (78.0-98.0); Platelet Count 94 10x3/uL (130-400); RBC Distribution Width 18.8 % (11.5-14.5); Red Blood Cell (RBC) Count 4.53 mill/uL (4.70-6.10)
[2023-11-10 07:24] LABS: Anisocytosis MODERATE=16-30 cells HPF (0-5); Hypochromia SLIGHT = 6-15 cells HPF (0-5); Large Platelets 8.8 % (0-5); Lymphocytes 9 % (21-51); Macrocytosis SLIGHT = 6-15 cells HPF (0-5); Monocytes 7 % (0-10); Neutrophil 84 % (42-75); Platelet Adequacy Comment Platelets Decreased; Polychromasia SLIGHT = 2-3 cells HPF (0-2); Smudge Cells 2.9 %
[2023-11-10] MEDS: Dexamethasone 1 MG TAB PO SCH (17:31)
[2023-11-10] MEDS: DOBUTamine 500 mg/250 ml 250 ML IVPB SCH (22:59)
[2023-11-11 04:57] LABS: #Basophils Less than 0.03 10x3/uL (0.0-0.2); #Eosinphils Less than 0.03 10x3/uL (0.0-0.7); %Basophils 0.2 % (0.0-1.0); %Lymphocytes 6.2 % (21.0-51.0); %Monocytes 3.2 % (0.0-10.0); %Neutrophils 89.9 % (42.0-75.0); Hematocrit 34.1 % (42.0-52.0); Hemoglobin 11.5 g/dL (14.0-18.0); Mean Corpuscular HGB CONC 33.7 g/dL (32.0-36.0); Mean Corpuscular Hemoglobin 27.8 pg (27.0-31.0); Mean Corpuscular Volume 82.6 fL (78.0-98.0); Platelet Count 82 10x3/uL (130-400); RBC Distribution Width 18.3 % (11.5-14.5); Red Blood Cell (RBC) Count 4.13 mill/uL (4.70-6.10)
[2023-11-11 05:14] LABS: ALT (SGPT) 71 U/L (8-55); AST (SGOT) 50 U/L (5-34); Albumin 3.1 g/dL (3.4-4.8); Alkaline Phosphatase 85 U/L (40-110); Anion Gap 19 mmol/L (10-20); BUN (Urea Nitrogen) 53 mg/dL (8.4-25.7); Calc. Creatinine Clearance 18 mL/min (70-130); Calcium 8.9 mg/dL (7.8-10.44); Carbon Dioxide 25 mmol/L (23-31); Chloride 101 mmol/L (98-107); Estimated GFR 22; Globulin 2.8 g/dL (2.4-3.5); Glucose 120 mg/dL (83-110); Potassium 4.2 mmol/L (3.5-5.1); Protein, Total 5.9 g/dL (5.8-8.1); Sodium 141 mmol/L (136-145)
[2023-11-11] MEDS: Furosemide 20 MG (2 mL) VIAL SLOW IVP SCH (06:38)
[2023-11-11] MEDS ORDERED: Furosemide 20 MG (2 mL) VIAL SLOW IVP SCH (09:00)
[2023-11-12 10:31] LABS: #Basophils Less than 0.03 10x3/uL (0.0-0.2); #Eosinphils Less than 0.03 10x3/uL (0.0-0.7); %Lymphocytes 4.1 % (21.0-51.0); %Monocytes 9.5 % (0.0-10.0); %Neutrophils 86.1 % (42.0-75.0); Hematocrit 33.3 % (42.0-52.0); Hemoglobin 10.9 g/dL (14.0-18.0); Mean Corpuscular HGB CONC 32.7 g/dL (32.0-36.0); Mean Corpuscular Volume 85.6 fL (78.0-98.0); Platelet Count 81 10x3/uL (130-400); RBC Distribution Width 18.4 % (11.5-14.5); Red Blood Cell (RBC) Count 3.89 mill/uL (4.70-6.10)
[2023-11-12 10:45] LABS: ALT (SGPT) 61 U/L (8-55); AST (SGOT) 33 U/L (5-34); Albumin 3.2 g/dL (3.4-4.8); Alkaline Phosphatase 76 U/L (40-110); Anion Gap 18 mmol/L (10-20); BUN (Urea Nitrogen) 55 mg/dL (8.4-25.7); Bilirubin, Total 1.5 mg/dL (0.2-1.2); Calc. Creatinine Clearance 19 mL/min (70-130); Calcium 8.8 mg/dL (7.8-10.44); Carbon Dioxide 24 mmol/L (23-31); Chloride 102 mmol/L (98-107); Estimated GFR 23; Globulin 2.8 g/dL (2.4-3.5); Glucose 107 mg/dL (83-110); Potassium 4.5 mmol/L (3.5-5.1); Sodium 139 mmol/L (136-145)
[2023-11-12] MEDS ORDERED: Ipratropium/Albuterol 3 ML NEB NEB PRN ×2 (11:56→11:59)
[2023-11-12] MEDS: Dexamethasone 1 MG TAB PO SCH (17:23)
[2023-11-12] MEDS: Docusate 100 MG CAP PO PRN (17:26)
[2023-11-13 07:52] LABS: ALT (SGPT) 48 U/L (8-55); AST (SGOT) 30 U/L (5-34); Albumin 3.3 g/dL (3.4-4.8); Alkaline Phosphatase 69 U/L (40-110); Anion Gap 14 mmol/L (10-20); BUN (Urea Nitrogen) 50 mg/dL (8.4-25.7); Bilirubin, Total 1.5 mg/dL (0.2-1.2); Calc. Creatinine Clearance 22 mL/min (70-130); Carbon Dioxide 24 mmol/L (23-31); Chloride 104 mmol/L (98-107); Estimated GFR 28; Globulin 2.8 g/dL (2.4-3.5); Glucose 114 mg/dL (83-110); Potassium 4.8 mmol/L (3.5-5.1); Protein, Total 6.1 g/dL (5.8-8.1); Sodium 137 mmol/L (136-145)
[2023-11-13 07:54] LABS: #Basophils Less than 0.03 10x3/uL (0.0-0.2); #Eosinphils Less than 0.03 10x3/uL (0.0-0.7); %Basophils 0.1 % (0.0-1.0); %Lymphocytes 4.2 % (21.0-51.0); %Monocytes 5.2 % (0.0-10.0); %Neutrophils 90.1 % (42.0-75.0); Hematocrit 35.8 % (42.0-52.0); Hemoglobin 11.2 g/dL (14.0-18.0); Mean Corpuscular HGB CONC 31.3 g/dL (32.0-36.0); Mean Corpuscular Hemoglobin 27.7 pg (27.0-31.0); Mean Corpuscular Volume 88.6 fL (78.0-98.0); Platelet Count 67 10x3/uL (130-400); RBC Distribution Width 19.3 % (11.5-14.5); Red Blood Cell (RBC) Count 4.04 mill/uL (4.70-6.10)
[2023-11-13] MEDS: Docusate 100 MG CAP PO SCH ×2 (12:43→21:22)
[2023-11-13] MEDS: Polyethylene Glycol 3350 17 GM Packet PO SCH (12:43)
[2023-11-13] MEDS: Bisacodyl 10 MG SUPP PR SCH ×2 (12:55→15:25)
[2023-11-13] MEDS ORDERED: Dexamethasone 1 MG TAB PO SCH ×2 (13:30→21:00)
[2023-11-13] MEDS: Dexamethasone 1 MG TAB PO SCH (16:20)
[2023-11-13] MEDS: Pregabalin 25 MG CAP PO SCH (21:22)
[2023-11-14] MEDS: Polyethylene Glycol 3350 17 GM Packet PO SCH (09:06)
[2023-11-14] MEDS: DOBUTamine 500 mg/250 ml 250 ML IVPB SCH (20:18)
[2023-11-14] MEDS: Isosorbide Dinitrate 5 MG TAB PO SCH (21:34)
[2023-11-14] MEDS: hydrALAZINE 10 MG TAB PO SCH (21:34)
[2023-11-14] MEDS: Bisacodyl 10 MG SUPP PR PRN (21:35)
[2023-11-15] MEDS: Aspirin 325 MG TAB PO SCH (09:06)
[2023-11-15] MEDS: Dexamethasone 1 MG TAB PO SCH (09:06)
[2023-11-16 08:41] LABS: Hematocrit 32.5 % (42.0-52.0); Hemoglobin 10.9 g/dL (14.0-18.0); Mean Corpuscular HGB CONC 33.5 g/dL (32.0-36.0); Mean Corpuscular Hemoglobin 28.1 pg (27.0-31.0); Mean Corpuscular Volume 83.8 fL (78.0-98.0); Platelet Count 84 10x3/uL (130-400); RBC Distribution Width 18.1 % (11.5-14.5); Red Blood Cell (RBC) Count 3.88 mill/uL (4.70-6.10)
[2023-11-16 08:55] LABS: Anion Gap 14 mmol/L (10-20); BUN (Urea Nitrogen) 38 mg/dL (8.4-25.7); Calc. Creatinine Clearance 30 mL/min (70-130); Calcium 8.4 mg/dL (7.8-10.44); Carbon Dioxide 19 mmol/L (23-31); Chloride 107 mmol/L (98-107); Estimated GFR 39; Glucose 114 mg/dL (83-110); Potassium 4.3 mmol/L (3.5-5.1); Sodium 136 mmol/L (136-145)
[2023-11-16] MEDS: Lidocaine 4% Patch TD SCH (11:59)
[2023-11-16] MEDS: Pregabalin 50 MG CAP PO SCH (21:04)
[2023-11-16] MEDS: Transdermal Patch Removal TOP SCH (21:05)
[2023-11-17] MEDS: Lidocaine 4% Patch TD SCH (09:30)
[2023-11-17] MEDS: Dexamethasone 1 MG TAB PO SCH (09:31)
[2023-11-17] MEDS: Bumetanide 1 MG TAB PO SCH ×2 (10:36→17:02)
[2023-11-18 07:07] LABS: #Basophils Less than 0.03 10x3/uL (0.0-0.2); #Eosinphils Less than 0.03 10x3/uL (0.0-0.7); %Basophils 0.1 % (0.0-1.0); %Lymphocytes 8.6 % (21.0-51.0); %Monocytes 9.6 % (0.0-10.0); %Neutrophils 81.3 % (42.0-75.0); Hematocrit 32.3 % (42.0-52.0); Hemoglobin 10.6 g/dL (14.0-18.0); Mean Corpuscular HGB CONC 32.8 g/dL (32.0-36.0); Mean Corpuscular Volume 85.2 fL (78.0-98.0); Platelet Count 92 10x3/uL (130-400); RBC Distribution Width 18.4 % (11.5-14.5); Red Blood Cell (RBC) Count 3.79 mill/uL (4.70-6.10)
[2023-11-18 07:18] LABS: Anion Gap 17 mmol/L (10-20); BUN (Urea Nitrogen) 36 mg/dL (8.4-25.7); Calc. Creatinine Clearance 30 mL/min (70-130); Calcium 8.7 mg/dL (7.8-10.44); Carbon Dioxide 19 mmol/L (23-31); Chloride 110 mmol/L (98-107); Estimated GFR 39; Glucose 87 mg/dL (83-110); Magnesium 2.1 mg/dL (1.6-2.6); Potassium 5.1 mmol/L (3.5-5.1); Sodium 141 mmol/L (136-145)
[2023-11-18] MEDS: Empagliflozin 10 MG TAB PO SCH (10:30)
[2023-11-18] MEDS: Metolazone 2.5 MG TAB PO SCH (16:50)
[2023-11-19 13:56] LABS: #Basophils Less than 0.03 10x3/uL (0.0-0.2); #Eosinphils Less than 0.03 10x3/uL (0.0-0.7); %Basophils 0.1 % (0.0-1.0); %Lymphocytes 3.9 % (21.0-51.0); %Monocytes 9.7 % (0.0-10.0); %Neutrophils 85.9 % (42.0-75.0); Hematocrit 35.2 % (42.0-52.0); Hemoglobin 11.5 g/dL (14.0-18.0); Mean Corpuscular HGB CONC 32.7 g/dL (32.0-36.0); Mean Corpuscular Hemoglobin 27.4 pg (27.0-31.0); Mean Corpuscular Volume 83.8 fL (78.0-98.0); Mean Platelet Volume 12.6 fL (7.4-10.4); Platelet Count 113 10x3/uL (130-400); RBC Distribution Width 18.3 % (11.5-14.5)
[2023-11-19 14:04] LABS: Bacteria/HPF None Seen HPF (None Seen); Bilirubin Negative (Negative); Blood, Urine 3+ (Negative); CAUTI Indications for Culture Dysuria,urgency,freq; Clarity Turbid (Clear); Glucose, Urine (Dipstick) 200 mg/dL (Negative); Ketone, Urine Negative (Negative); Leukocyte 500 Leu/uL (Negative); Nitrite Negative (Negative); Protein, Urine (Dipstick) 50 mg/dL (Neg-Trace); Specific Gravity, Urine 1.007 (1.002-1.036); Squamous Epithelial 0-3 HPF (0-3); Urobilinogen Normal mg/dL (Less than 2); WBC/HPF Greater than 50 HPF (0-3); pH, Urine 7.5 (5.0-9.0)
[2023-11-19 14:06] LABS: Urine Culture Reflex Yes Yes
[2023-11-19 14:12] LABS: Magnesium 1.9 mg/dL (1.6-2.6)
[2023-11-19 19:13] LABS: Anion Gap 21 mmol/L (10-20); BUN (Urea Nitrogen) 45 mg/dL (8.4-25.7); Calc. Creatinine Clearance 24 mL/min (70-130); Calcium 8.9 mg/dL (7.8-10.44); Carbon Dioxide 19 mmol/L (23-31); Chloride 104 mmol/L (98-107); Estimated GFR 30; Glucose 113 mg/dL (83-110); Potassium 5.2 mmol/L (3.5-5.1); Sodium 139 mmol/L (136-145)
[2023-11-20] MEDS: Albumin 25% 25 GM (100 mL) BOT IVPB SCH ×2 (03:26→11:35)
[2023-11-20 04:30] LABS: #Basophils Less than 0.03 10x3/uL (0.0-0.2); #Eosinphils Less than 0.03 10x3/uL (0.0-0.7); %Basophils 0.1 % (0.0-1.0); %Lymphocytes 3.9 % (21.0-51.0); %Monocytes 9.6 % (0.0-10.0); %Neutrophils 85.8 % (42.0-75.0); Hematocrit 32.5 % (42.0-52.0); Hemoglobin 10.9 g/dL (14.0-18.0); Mean Corpuscular HGB CONC 33.5 g/dL (32.0-36.0); Mean Corpuscular Hemoglobin 26.7 pg (27.0-31.0); Mean Corpuscular Volume 79.7 fL (78.0-98.0); Platelet Count 111 10x3/uL (130-400); RBC Distribution Width 17.6 % (11.5-14.5); Red Blood Cell (RBC) Count 4.08 mill/uL (4.70-6.10)
[2023-11-20 04:46] LABS: ALT (SGPT) 25 U/L (8-55); AST (SGOT) 15 U/L (5-34); Albumin 3.4 g/dL (3.4-4.8); Alkaline Phosphatase 82 U/L (40-110); Anion Gap 18 mmol/L (10-20); BUN (Urea Nitrogen) 51 mg/dL (8.4-25.7); Bilirubin, Total 1.4 mg/dL (0.2-1.2); Calc. Creatinine Clearance 23 mL/min (70-130); Calcium 9.1 mg/dL (7.8-10.44); Carbon Dioxide 23 mmol/L (23-31); Chloride 104 mmol/L (98-107); Estimated GFR 28; Globulin 3.2 g/dL (2.4-3.5); Glucose 107 mg/dL (83-110); Magnesium 2.1 mg/dL (1.6-2.6); Potassium 4.9 mmol/L (3.5-5.1); Protein, Total 6.6 g/dL (5.8-8.1); Sodium 140 mmol/L (136-145)
[2023-11-20] MEDS ORDERED: cefTRIAXone\\ROCEPHIN 2 GM in Sodium Chloride 0.9% 100 ML IVPB SCH (09:00)
[2023-11-20] MEDS ORDERED: Fluticasone Propionate Nasal Spray 16 gm Bottle NASAL SCH (09:00)
[2023-11-20] MEDS: cefTRIAXone\\ROCEPHIN 1 GM in Sodium Chloride 0.9% 100 ML IVPB SCH ×2 (11:34→11:37)
[2023-11-20 15:16] VITALS: BMI 21.6
[2023-11-21] MEDS: Albumin 25% 25 GM (100 mL) BOT IVPB SCH (04:43)
[2023-11-21] MEDS: Dexamethasone 1 MG TAB PO SCH (09:39)
[2023-11-21] MEDS: DOBUTamine 500 mg/250 ml 250 ML IVPB SCH (16:38)
[2023-11-21 19:54] LABS: Hematocrit 32.4 % (42.0-52.0); Hemoglobin 10.6 g/dL (14.0-18.0); Mean Corpuscular HGB CONC 32.7 g/dL (32.0-36.0); Mean Corpuscular Hemoglobin 27.1 pg (27.0-31.0); Mean Corpuscular Volume 82.9 fL (78.0-98.0); Platelet Count 103 10x3/uL (130-400); RBC Distribution Width 17.8 % (11.5-14.5); Red Blood Cell (RBC) Count 3.91 mill/uL (4.70-6.10)
[2023-11-21 20:01] LABS: Hemoglobin A1c 5.2 % (4.0-6.0)
[2023-11-21 20:03] LABS: ALT (SGPT) 18 U/L (8-55); AST (SGOT) 13 U/L (5-34); Albumin 4.1 g/dL (3.4-4.8); Alkaline Phosphatase 70 U/L (40-110); Anion Gap 18 mmol/L (10-20); BUN (Urea Nitrogen) 45 mg/dL (8.4-25.7); Bilirubin, Total 1.2 mg/dL (0.2-1.2); Calc. Creatinine Clearance 20 mL/min (70-130); Carbon Dioxide 20 mmol/L (23-31); Chloride 105 mmol/L (98-107); Estimated GFR 31; Globulin 2.9 g/dL (2.4-3.5); Glucose 104 mg/dL (83-110); Magnesium 2.2 mg/dL (1.6-2.6); Sodium 138 mmol/L (136-145)
[2023-11-21 20:14] LABS: Anisocytosis SLIGHT = 6-15 cells HPF (0-5); Band 1 % (5-11); Hypochromia SLIGHT = 6-15 cells HPF (0-5); Lymphocytes 10 % (21-51); Monocytes 13 % (0-10); Neutrophil 76 % (42-75); Platelet Adequacy Comment Platelets Decreased; Poikilocytosis SLIGHT = 6-15 cells HPF (0-5); Polychromasia MODERATE = 3-4 cells HPF (0-2)
[2023-11-22 08:32] LABS: #Basophils Less than 0.03 10x3/uL (0.0-0.2); #Eosinphils Less than 0.03 10x3/uL (0.0-0.7); %Basophils 0.1 % (0.0-1.0); %Lymphocytes 9.4 % (21.0-51.0); %Monocytes 7.5 % (0.0-10.0); %Neutrophils 82.6 % (42.0-75.0); Hematocrit 31.7 % (42.0-52.0); Hemoglobin 10.3 g/dL (14.0-18.0); Mean Corpuscular HGB CONC 32.5 g/dL (32.0-36.0); Mean Corpuscular Hemoglobin 27.3 pg (27.0-31.0); Mean Corpuscular Volume 84.1 fL (78.0-98.0); Platelet Count 99 10x3/uL (130-400); RBC Distribution Width 17.9 % (11.5-14.5); Red Blood Cell (RBC) Count 3.77 mill/uL (4.70-6.10)
[2023-11-22 08:40] LABS: Anion Gap 18 mmol/L (10-20); BUN (Urea Nitrogen) 46 mg/dL (8.4-25.7); Calc. Creatinine Clearance 21 mL/min (70-130); Calcium 9.2 mg/dL (7.8-10.44); Carbon Dioxide 19 mmol/L (23-31); Chloride 107 mmol/L (98-107); Estimated GFR 35; Glucose 124 mg/dL (83-110); Magnesium 2.2 mg/dL (1.6-2.6); Potassium 4.7 mmol/L (3.5-5.1); Sodium 139 mmol/L (136-145)
[2023-11-22] MEDS ORDERED: DOBUTamine 500 mg/250 ml 250 ML IVPB SCH (10:15)
[2023-11-22] MEDS: cefTRIAXone\\ROCEPHIN 1 GM in Sodium Chloride 0.9% 100 ML IVPB SCH (14:57)
[2023-11-23 05:22] LABS: Anion Gap 15 mmol/L (10-20); BUN (Urea Nitrogen) 49 mg/dL (8.4-25.7); Calc. Creatinine Clearance 23 mL/min (70-130); Calcium 9.1 mg/dL (7.8-10.44); Carbon Dioxide 19 mmol/L (23-31); Chloride 110 mmol/L (98-107); Estimated GFR 38; Glucose 118 mg/dL (83-110); Potassium 4.5 mmol/L (3.5-5.1); Sodium 139 mmol/L (136-145)
[2023-11-23 06:22] LABS: #Basophils Less than 0.03 10x3/uL (0.0-0.2); %Basophils 0.1 % (0.0-1.0); %Eosinophils 0.7 % (0.0-10.0); %Lymphocytes 10.3 % (21.0-51.0); %Monocytes 8.6 % (0.0-10.0); %Neutrophils 79.6 % (42.0-75.0); Hematocrit 32.1 % (42.0-52.0); Hemoglobin 10.4 g/dL (14.0-18.0); Mean Corpuscular HGB CONC 32.4 g/dL (32.0-36.0); Mean Corpuscular Hemoglobin 27.1 pg (27.0-31.0); Mean Corpuscular Volume 83.6 fL (78.0-98.0); Mean Platelet Volume 12.8 fL (7.4-10.4); Platelet Count 116 10x3/uL (130-400); RBC Distribution Width 18.1 % (11.5-14.5); Red Blood Cell (RBC) Count 3.84 mill/uL (4.70-6.10)
[2023-11-23 07:09] LABS: Anisocytosis SLIGHT = 6-15 cells HPF (0-5); Macrocytosis SLIGHT = 6-15 cells HPF (0-5); Platelet Adequacy Comment Platelets Decreased; Polychromasia SLIGHT = 2-3 cells HPF (0-2)
[2023-11-23] MEDS: Torsemide 20 MG TAB PO SCH (18:26)
[2023-11-23] MEDS: Carvedilol 3.125 MG TAB PO SCH (18:27)
[2023-11-24] MEDS: Dexamethasone 1 MG TAB PO SCH (10:29)
[2023-11-24] MEDS: Torsemide 20 MG TAB PO SCH (10:29)
[2023-11-24 12:21] VITALS: BMI 19.4
[2023-11-24 14:01] LABS: #Basophils 0.03 10x3/uL (0.0-0.2); %Basophils 0.3 % (0.0-1.0); %Eosinophils 1.1 % (0.0-10.0); %Lymphocytes 9.9 % (21.0-51.0); %Monocytes 10.2 % (0.0-10.0); %Neutrophils 76.9 % (42.0-75.0); Hematocrit 31.4 % (42.0-52.0); Hemoglobin 10.3 g/dL (14.0-18.0); Mean Corpuscular HGB CONC 32.8 g/dL (32.0-36.0); Mean Corpuscular Hemoglobin 27.3 pg (27.0-31.0); Mean Corpuscular Volume 83.3 fL (78.0-98.0); Platelet Count 111 10x3/uL (130-400); RBC Distribution Width 18.2 % (11.5-14.5); Red Blood Cell (RBC) Count 3.77 mill/uL (4.70-6.10)
[2023-11-24 14:08] LABS: Anion Gap 18 mmol/L (10-20); BUN (Urea Nitrogen) 58 mg/dL (8.4-25.7); Calc. Creatinine Clearance 23 mL/min (70-130); Calcium 8.7 mg/dL (7.8-10.44); Carbon Dioxide 18 mmol/L (23-31); Estimated GFR 32; Glucose 96 mg/dL (83-110); Magnesium 2.1 mg/dL (1.6-2.6); Potassium 4.5 mmol/L (3.5-5.1); Sodium 139 mmol/L (136-145)
[2023-11-24 14:09] LABS: Chloride 108 mmol/L (98-107)
[2023-11-24 16:07] VITALS: BP 123/61; TEMP 98.2
[2023-11-24] MEDS ORDERED: Pantoprazole DR 40 MG TAB PO SCH (21:00)
== END 2023-11-24 18:38 | disposition home health service (06) | DRG 682 ==
LOC: ERS 11:39 → 2NO 18:49
PROVIDERS: ADMIT Family Medicine; ATTEND Internal Medicine
PROC: 4A133R1 Monitoring of Arterial Saturation, Peripheral, Percutaneous Approach (ICD-10-PCS; 2023-11-05)
PROC: 0DJ08ZZ Inspection of Upper Intestinal Tract, Via Natural or Artificial Opening Endoscopic (ICD-10-PCS; principal; 2023-11-07)
PROC: 30233J1 Transfusion of Nonautologous Serum Albumin into Peripheral Vein, Percutaneous Approach (ICD-10-PCS; 2023-11-19)
DX: N17.9 Acute kidney failure, unspecified (principal); E43 Unspecified severe protein-calorie malnutrition; I50.23 Acute on chronic systolic (congestive) heart failure; I13.0 Hypertensive heart and chronic kidney disease with heart failure and stage 1 through stage 4 chronic kidney disease, or unspecified chronic kidney disease; I50.22 Chronic systolic (congestive) heart failure; K80.10 Calculus of gallbladder with chronic cholecystitis without obstruction; Z68.1 Body mass index [BMI] 19.9 or less, adult; N39.0 Urinary tract infection, site not specified; I08.0 Rheumatic disorders of both mitral and aortic valves; K29.80 Duodenitis without bleeding; R13.10 Dysphagia, unspecified; D63.1 Anemia in chronic kidney disease; R33.9 Retention of urine, unspecified; G47.00 Insomnia, unspecified; E11.22 Type 2 diabetes mellitus with diabetic chronic kidney disease; F17.210 Nicotine dependence, cigarettes, uncomplicated; R74.01 Elevation of levels of liver transaminase levels; K76.1 Chronic passive congestion of liver; I50.812 Chronic right heart failure; I27.20 Pulmonary hypertension, unspecified; N18.4 Chronic kidney disease, stage 4 (severe); E87.5 Hyperkalemia; K29.70 Gastritis, unspecified, without bleeding; Z91.148 Patient's other noncompliance with medication regimen for other reason; Z98.890 Other specified postprocedural states; Z79.899 Other long term (current) drug therapy
CPT/HCPCS: 36415; 36416; 36600; 70490; 71045; 76700; 80048; 80053; 81001; 82805; 83036; 83690; 83735; 83880; 84100; 84145; 84439; 84443; 84481; 85025; 85027; 85610; 85730; 87077; 87086; 87186; 87324; 87449; 88305; 88342; 93005; 93306; 94640; 96374; 96375; C9113; J0295; J0696; J1250; J1644; J1815; J1940; J2060; J2270; J2405; J2704; J3490; J7042; J7070; J7620; J7999; J8540; P9047